=== PATIENT | female | born 1945 | race Caucasian/White ===

== ENCOUNTER 2024-07-06 20:32 | Inpatient (IN) | payer MEDICARE, SELFPAY ==
[2024-07-06 20:33] VITALS: BMI 23.1
--- NOTE | 2024-07-06 20:33 | EKG_ITS ---
[facility] Test Date: 2024-07-06 Pat Name: RAJESH MEHTA Department: Room: - Gender: Female Test Driver: : 1945 Requested By: Eleuterio Ledbetter Order Number: [id number] Reading MD: Eleuterio Ledbetter Measurements Intervals [place] Rate: 67 P: 91 PA: 171 QRS: 57 QRSD: 82 T: 64 QT: 450 QTc: 478 Interpretive Statements SINUS RHYTHM Compared to ECG 08/21/2022 08:58:54 Sinus bradycardia no longer present /store/S0/[id number].pdf
[2024-07-06 20:43] VITALS: BP 120/61; PULSE 70; RESP 18; TEMP 36.5; O2SAT 97
--- NOTE | 2024-07-06 20:57 | XR_ITS ---
Examination: PA chest single view TECHNIQUE: Upright PA chest single view Exam date and time: July 06, [id number] hours Comparison December 03, 2023 INDICATIONS: Chest pain shortness of breath today. FINDINGS: COPD with moderate hyperexpansion Stable parenchymal pleural scarring at the apices. Normal heart size. No interval pneumonia or pulmonary edema Impression: COPD No interval pneumonia or pulmonary edema
[2024-07-06] MEDS: ONDANSETRON ODT 4 MG TABRAP PO (21:00)
--- NOTE | 2024-07-06 21:05 | EDRME_ITS ---
Rapid Medical Screening Exam [facility] Arrival date/time: 07/06/24 20:32 78F with history of HTN, RA, OA, and anxiety presents to ED with some CP, SOB, and N/V after she started taking doxycycline for a MRSA UTI. Patient took 0.25 mg Xanax and started feeling better. Chief Complaint: Chest Pain Time Seen by Provider: 07/06/24 20:56 Vital signs: Vital Signs Temperature 97.7 F 07/06/24 20:43 Pulse Rate 70 07/06/24 20:43 Respiratory Rate 18 07/06/24 20:43 Blood Pressure 120/61 07/06/24 20:43 Pulse Oximetry (%) 97 07/06/24 20:43 Oxygen Delivery Method Room Air 07/06/24 20:43
[2024-07-06 21:21] LABS: Basophils # (Auto) 0.1 Thou/mm3 (0.0-0.2); Basophils % (Auto) 1 % (0-2.5); Eosinophils # (Auto) 0.2 Thou/mm3 (0.0-0.5); Eosinophils % (Auto) 3 % (0-10); Hematocrit 32.1 % (36.0-46.0); Hemoglobin 11.4 g/dL (12.0-16.0); Immature Granulocytes % (Auto) 0 % (0-0); Immature Granulocytes Auto 0.03 Thou/mm3 (0.00-0.00); Lymphocytes # (Auto) 3.2 Thou/mm3 (1.0-4.8); Lymphocytes % (Auto) 40 % (10-50); Mean Corpuscular HGB Conc 35.5 g/dl (31.0-37.0); Mean Corpuscular Hemoglobin 30.9 pg (25.0-35.0); Mean Corpuscular Volume 87 fL (80-100); Monocytes % (Auto) 12 % (0-12); Neutrophils # (Auto) 3.4 Thou/mm3 (1.8-7.7); Neutrophils % (Auto) 43 % (37-80); Nucleated Red Blood Cell % 0 /100 WBC (0); Platelet Count 301 Thou/mm3 (140-440); RDW Standard Deviation 39.8 fL (36.4-46.3); Red Blood Count 3.69 Miln/mm3 (4.00-5.20); White Blood Count 7.9 Thou/mm3 (3.6-11.0)
[2024-07-06 21:44] LABS: Alanine Aminotransferase 13 U/L (10-49); Albumin, Serum 4.5 gm/dL (3.4-4.8); Albumin/Globulin Ratio 1.7 (1.2-2.2); Alkaline Phosphatase 55 U/L (46-116); Anion Gap 10 (7-16); Aspartate Amino Transferase 23 U/L (0-34); BUN/Creatinine Ratio 16 Ratio (12-20); Bilirubin,Total 0.5 mg/dL (0.3-1.2); Blood Urea Nitrogen 14 mg/dL (9-23); Calcium 9.3 mg/dL (8.3-10.6); Calcium (Corrected) 9.3 mg/dL (8.5-10.1); Carbon Dioxide 22.9 mMol/L (20.0-31.0); Chloride 92 mMol/L (98-107); Creatinine (Component) 0.9 mg/dL (0.6-1.3); Estimated Creatinine Clearance 44.5 mL/min (>60); Globulin 2.6 gm/dL (2.3-3.5); Glucose 93 mg/dL (74-106); Osmolality,Calculated 252 (275-295); Potassium 3.5 mMol/L (3.4-5.1); Sodium 125 mMol/L (136-145); Total Protein 7.1 gm/dL (5.7-8.2); eGFR > 60 See Note
[2024-07-06 21:49] LABS: Troponin I 0.068 ng/mL (0.0-0.045)
[2024-07-06 22:27] VITALS: BP 162/79; PULSE 67; RESP 18; TEMP 36.8; O2SAT 98
[2024-07-06 23:45] LABS: Collection Type, Urine Clean Catch
--- NOTE | 2024-07-06 23:46 | PD.EDADULT ---
ED General RME/HPI General Chief complaint: Chest Pain Stated complaint: BP HIGH, HEAVINESS IN CHEST, VOMITING Time Seen by Provider: 07/06/24 20:56 Arrival date/time: 07/06/24 20:32 RME / HPI RME / HPI narrative: This patient is a 78-year-old female with past medical history of hypertension,COPD, GERD, rheumatoid arthritis, lupus on hydroxychloroquine, anxiety takes Xanax, hyperlipidemia presented to the ED with chief complaint of 1 day history of chest tightness started after projectile vomiting and high blood pressure at home. She had 1 episode of vomiting consisting of food particles without any blood. She had some clamminess associated with lightheadedness and feeling of weakness. She reported to have chest tightness lasting 1 hour and went away after she took her Xanax 0.25 mg p.o. x 1. She rated her pain as 7/10 crushing in nature was constant and resolved after an hour. She also reported that her blood pressure was elevated during this episode around 190/100 at home. She does not take her blood pressure every day and is also not compliant with her blood pressure medications. She reports to have mild exertional shortness of breath however she can lay down flat on the bed and denies any lower extremity swelling. Patient has been drinking 32 ounces of water/4 glasses every day. She has been taking doxycycline 100 mg twice daily for MRSA UTI given by her primary care doctor. She took 5 pills of doxycycline and is left with 9 more pills. She vomited her doxycycline today in the evening before coming to the ER. She also complains of indigestion with bloating sensation. Denied any abdominal discomfort. She reported her dysuria has been improving after taking phenazopyridine but still has back pain. Of note, patient reported that she had cough without phlegm over a month ago and took ciprofloxacin for 10 days 2 weeks ago given by her PCP. She also takes butalbital for migraines off and on. In the ED, vitals revealed high blood pressure around 160/79, pulse 67, respiratory 18 and afebrile. Patient was saturating well on room air. Chest x-ray showed no active disease. Labs were significant for hemoglobin 11.4 white count stable at 7.9. Platelet count 301. Coagulation panel pending. Serum sodium 125, potassium 3.5, chloride 92. Kidney function was stable with BUN 40 and creatinine 0.9. GFR 60. Blood glucose 93. Liver enzymes unremarkable. Troponin I was elevated at 0.068. EKG showed sinus rhythm with regular rate and T wave inversion in V1. No acute ST-T changes were seen. No axis deviation was seen. Urinalysis is pending. PMH: As above PSH: Hysterectomy in 2018, bladder surgery, appendectomy SH: Quit smoking 50 years ago used to smoke 1 pack of cigarettes. Denies drinking alcohol or illicit drug use Allergies: Nitrofurantoin, penicillin, sulfa, sulfamethoxazole, Bactrim, butorphanol causes rash Patient was given Zofran x 1, Protonix x 1, KCl 40 mEq x 1, aspirin 325 mg x 1, Xanax 0.25 mg x 1, bolus of 1 L NS and labs were ordered along with urine analysis and urine electrolytes. Urinalysis showed dark yellow urine with pH 6.5, blood 2+ with positive nitrate and leukocyte esterase with WBC 58+. Urine sodium 46.9, urine random potassium 12 and urine random chloride 41.6. Patient would need to be admitted for hypertensive emergency, euvolemic hypoosmolar acute on chronic hyponatremia and hypochloremia likely due to decreased p.o. intake versus SIADH due to possible hydroxychloroquine use, elevated troponin I/NSTEMI?. We are reevaluating with repeating sodium, troponin I. Ordered lactic acid and BNP. Orthostatic vitals were also ordered. will need sodium checks q4h and goal of Na correction around 6 meqs in first 24 hrs. Patient was informed that she will need to be admitted for further workup and evaluation. Hospitalist team notified regarding admission patient will be admitted. MD complaint: chest tighteness, vomitting ,High BP Onset (ago): day(s) Location: chest Radiation: non-radiation Severity: moderate Severity scale (1-10): 7 Quality: dull and constant Consistency: now resolved Relieving factors: medication (xanax) Exacerbating factors: none Associated symptoms: chest pain, diaphoresis, nausea/vomiting and shortness of breath Related Data Home Medications ?Medication ?Instructions ?Recorded ?Confirmed atorvastatin 10 mg tablet 10 mg PO QDAY 02/11/18 07/19/21 famotidine 40 mg tablet 40 mg PO QDAY 02/11/18 07/19/21 alprazolam [Xanax] PO 05/12/19 07/19/21 [id number]-[id number] PO 05/12/19 07/19/21 [Fioricet] aspirin 81 mg tablet,delayed 81 mg PO QDAY 07/19/21 07/19/21 release methenamine mandelate 1 gram tablet 1 g PO BID 07/19/21 07/19/21 Previous Rx's ?Medication ?Instructions ?Recorded azithromycin 250 mg tablet See Rx Instructions PO .COMPLEX #6 05/12/19 (Zithromax) tabs ondansetron 4 mg disintegrating See Rx Instructions .Route 05/12/19 tablet .COMPLEX #20 tabs ciprofloxacin HCl 250 mg tablet 250 mg PO BID #14 tabs 09/05/21 (Cipro) hydrocodone 5 mg-acetaminophen 325 1 tab PO BID PRN pain #6 tabs 01/31/22 mg tablet diphenhydramine HCl 25 mg capsule 25 mg PO Q8H PRN allergic symptoms 02/06/22 (Benadryl) #30 caps hydroxyzine HCl 25 mg tablet 25 mg PO TID PRN itching #30 tabs 02/06/22 tramadol 50 mg tablet 50 mg PO TID PRN pain #20 tabs 01/23/23 Allergies Allergy/AdvReac Type Severity Reaction Status Date / Time nitrofurantoin Allergy Severe RASH Verified 08/21/22 08:45 butorphanol Allergy Unknown Verified 08/21/22 08:45 Penicillins Allergy Unknown Verified 08/21/22 08:45 Sulfa (Sulfonamide Allergy Unknown Verified 08/21/22 08:45 Antibiotics) sulfamethoxazole (From Allergy Hives Verified 08/21/22 08:45 Bactrim) trimethoprim (From Bactrim) Allergy Hives Verified 08/21/22 08:45 Review of Systems Review of Systems Systems Reviewed: All systems reviewed, normal except as documented Past Medical History Past Medical History NEUROLOGIC: Positive Migraine and Head Trauma; Negative Neurological Disorders or Seizures CARDIAC: Positive Cardiac Disorders, Hypercholesterolemia and Hypertension; Negative Congestive Heart Failure RESPIRATORY: Positive Bronchitis; Negative Chronic Obstructive Pulmonary Disease (COPD) GASTROINTESTINAL: Positive Gastrointestinal Disorders and Gastroesophageal Reflux Disease; Negative Hepatitis or Colorectal Cancer GENITOURINARY: Negative Genitourinary Disorders or Renal Disease REPRODUCTIVE: Positive Previous Pregnancies; Negative Breast Cancer MUSCULOSKELETAL: Positive Musculoskeletal Disorders, Arthritis and Fractures ENT: Positive Cataracts and Head Trauma ENDOCRINE: Negative Endocrine Disorders, Diabetes Mellitus Type 1 or Diabetes Mellitus Type 2 HEMATOLOGIC: Negative Blood Disorders PSYCHO/SOCIAL: Positive Anxiety; Negative Depression OTHER HISTORY: Positive Hospitalization, Chicken Pox and Measles; Negative Autoimmune Disease, Falls, Blood Transfusions, Blood Transfusion Reaction, Anesthesia Reactions, Breast Cancer, Cervical Cancer or Colorectal Cancer Family History FAMILY HISTORY: Positive Family Psychiatric Problems, Family Cardiac Disorders, Family Gastrointestinal Problems, Family Cancer and Family Surgery; Negative Family Respiratory Disorders or Family Anesthesia Reaction Surgical History SURGICAL: Positive Oral Surgery, Abdominal Surgery, Arthroscopy, Hysterectomy and Tubal Ligation; Negative Cardiac Surgery, Endocrine Surgery, Tonsillectomy or Section Social History SMOKING STATUS: Never smoker SUBSTANCE USE: does not use ED Exam Narrative Physical exam: GENERAL APPEARANCE: Patient is AO x 3 old appearing female in mild anxiety saturating well on room air. NECK: Supple without lymphadenopathy. MMM. no stiffness or restricted ROM. HEART: Regular rate and regular rhythm, normal S1/S2, 2/4 systolic murmur heard on apex likely aortic stenosis LUNGS: CTAB, moving air well. No crackles or wheezes are heard. ABDOMEN: Soft, nontender, nondistended with good bowel sounds heard. BACK: Bilateral flank tenderness. EXTREMITIES: Without cyanosis, clubbing or edema. NEUROLOGICAL: Grossly nonfocal. Alert and oriented, moving all 4 extremities. CN not formally tested but appear grossly intact. Observed to ambulate with normal gait. Skin: Warm and dry without any rash. Psych: Mildly anxious however appropriate mood and affect Course Course Course Narrative: Patient was given Zofran x 1, Protonix x 1, KCl 40 mEq x 1, aspirin 325 mg x 1, Xanax 0.25 mg x 1, bolus of 1 L NS and labs were ordered along with urine analysis and urine electrolytes. Urinalysis showed dark yellow urine with pH 6.5, blood 2+ with positive nitrate and leukocyte esterase with WBC 58+. Urine sodium 46.9, urine random potassium 12 and urine random chloride 41.6. Patient would need to be admitted for hypertensive emergency, euvolemic hypoosmolar acute on chronic hyponatremia and hypochloremia likely due to decreased p.o. intake versus SIADH due to possible hydroxychloroquine use, elevated troponin I/NSTEMI?. We are reevaluating with repeating sodium, troponin I. Ordered lactic acid and BNP. Orthostatic vitals were also ordered. will need sodium checks q4h and goal of Na correction around 6 meqs in first 24 hrs. Patient was informed that she will need to be admitted for further workup and evaluation. Quality Measures none Orders Category Date Time Status COVID-19 Screening Questionnaire NOW Care 07/07/24 00:17 Completed Decision to Admit X1 Care 07/07/24 00:17 Completed EKG (ED ONLY) *Do not use* NOW Care 07/06/24 20:33 Completed Insert IV NOW Care 07/06/24 23:37 Active Orthostatic Vitals NOW Care 07/06/24 23:29 Active Strict Intake and Output Routine Care 07/06/24 23:36 Ordered EKG (ED Only) Stat Exams 07/06/24 20:33 Draft XR chest 1V portable Stat Exams 07/06/24 20:57 Completed BNP [B-Type Natriuretic Peptide] Stat Lab 07/06/24 21:09 Completed CBC Stat Lab 07/06/24 21:09 Completed CMP [Comprehensive Metabolic Panel] Stat Lab 07/06/24 21:09 Completed Creatinine,Random Urine Stat Lab 07/06/24 23:34 Completed Electrolytes, Urine Random Stat Lab 07/06/24 23:34 Completed INR [Prothrombin Time with INR] Stat Lab 07/06/24 21:09 Completed Lactate (Lactic Acid) Stat Lab 07/06/24 23:50 Completed Mag [Magnesium] Stat Lab 07/06/24 23:00 Completed Osmolality, Urine* Stat Lab 07/06/24 23:34 Received PTT [Partial Thromboplastin Time] Stat Lab 07/06/24 21:09 Completed Phosphorous Stat Lab 07/06/24 23:00 Completed Procalcitonin Stat Lab 07/06/24 23:00 Completed Sodium Stat Lab 07/06/24 23:00 Completed Troponin I Stat Lab 07/06/24 21:09 Completed Troponin I Stat Lab 07/06/24 23:00 Completed Urinalysis Stat Lab 07/06/24 23:34 Completed ALPRazoLAM [Xanax] Med 07/06/24 23:36 Discontinued 0.25 mg PO X1 ONE Aspirin Med 07/06/24 23:29 Discontinued 325 mg PO X1 ONE Doxycycline [Vibramycin] Med 07/08/24 09:00 Active 100 mg PO BID Doxycycline [Vibramycin] Med 07/06/24 23:45 Discontinued 100 mg PO X1 ONE KCL 10% Liq UDC 15 ML Med 07/06/24 23:29 Discontinued 40 meq GT X1 ONE Nitroglycerin Oint 2% [Nitro-paste Oint 2%] Med 07/07/24 00:16 Discontinued 1 inch TOP X1 ONE Ondansetron Odt [Zofran Odt] Med 07/06/24 20:57 Discontinued 4 mg PO X1 ONE Pantoprazole Inj [Protonix Inj] Med 07/06/24 23:29 Discontinued 40 mg IVP X1 ONE Phenazopyridine HCl [Pyridium] Med 07/07/24 08:00 Active 100 mg PO TIDWM Sodium Chloride 0.9% 1000 ml [Ns] 1,000 ml Med 07/06/24 23:39 Discontinued IV 999 mls/hr Sodium Chloride 0.9% 500 ml [Ns] 500 ml Med 07/06/24 23:30 Discontinued IV 999 mls/hr hydrALAZINE INJ [Apresoline Inj] Med 07/06/24 23:34 Active 10 mg IV Q6H PRN Vital Signs Vital signs: Vital Signs Temperature 97.7 F 07/06/24 20:43 Pulse Rate 70 07/06/24 20:43 Respiratory Rate 18 07/06/24 20:43 Blood Pressure 120/61 07/06/24 20:43 Pulse Oximetry (%) 97 07/06/24 20:43 Oxygen Delivery Method Room Air 07/06/24 20:43 Discharge Plan Plan Patient Disposition: Admit Acute Care w/in Hospital Problem List Clinical Impression: Hypertensive emergency, Elevated troponin I level, Acute hyponatremia MDM Narrative Sign Out note: Patient was given Zofran x 1, Protonix x 1, KCl 40 mEq x 1, aspirin 325 mg x 1, Xanax 0.25 mg x 1, bolus of 1 L NS and labs were ordered along with urine analysis and urine electrolytes. Urinalysis showed dark yellow urine with pH 6.5, blood 2+ with positive nitrate and leukocyte esterase with WBC 58+. Urine sodium 46.9, urine random potassium 12 and urine random chloride 41.6. Patient would need to be admitted for hypertensive emergency, euvolemic hypoosmolar acute on chronic hyponatremia and hypochloremia likely due to decreased p.o. intake versus SIADH due to possible hydroxychloroquine use, elevated troponin I/NSTEMI?. We are reevaluating with repeating sodium, troponin I. Ordered lactic acid and BNP. Orthostatic vitals were also ordered. will need sodium checks q4h and goal of Na correction around 6 meqs in first 24 hrs. Patient was informed that she will need to be admitted for further workup and evaluation. Medication Administration(s) Medication Administration History Acetaminophen (Acetaminophen 325 Mg Tablet) 650 mg PO Q4HR PRN PRN Reason: FEVER >101 Stop: 08/06/24 01:46 Alprazolam (Alprazolam 0.25 Mg Tablet) 0.25 mg PO Q12HR PRN PRN Reason: Anxiety Stop: 07/12/24 01:51 Amlodipine Besylate (Amlodipine Besylate 5 Mg Tablet) 5 mg PO QDAY RAMSEY Stop: 08/06/24 08:59 Aspirin (Aspirin Ec 81 Mg Tabec) 81 mg PO DAILY RAMSEY Stop: 08/06/24 08:59 Atorvastatin Calcium (Atorvastatin Calcium 20 Mg Tablet) 40 mg PO HS RAMSEY Stop: 08/06/24 20:59 Doxycycline Hyclate (Doxycycline 100 Mg Tablet) 100 mg PO BID RAMSEY Stop: 07/17/24 08:59 Enoxaparin Sodium (Enoxaparin Sod Inj 40 Mg/0.4 Ml Syringe) 40 mg SC DAILY RAMSEY Stop: 07/21/24 08:59 Famotidine (Famotidine Inj 10 Mg/Ml Vial 2 Ml) 20 mg IVP BID RAMSEY Stop: 08/06/24 08:59 Hydralazine HCl (Hydralazine Inj 20 Mg/Ml Vial) 10 mg IV Q6H PRN PRN Reason: HTN emergency Stop: 08/05/24 23:44 Hydroxychloroquine Sulfate (Hydroxychloroquine 200 Mg Tablet) 200 mg PO QDAY RAMSEY Stop: 07/14/24 08:59 Magnesium Sulfate (Magnesium Sulfate Ivpb) 2 gm in 50 mls @ 25 mls/hr IV X1 ONE Stop: 07/07/24 03:06 Last Admin: 07/07/24 01:52 Dose: 25 mls/hr Documented By: SUKHWINDER Ondansetron HCl (Ondansetron Inj 2 Mg/Ml Inj 2 Ml) 4 mg IV Q8HR PRN; Protocol PRN Reason: NAUSEA OR VOMITING Stop: 08/06/24 01:46 Phenazopyridine HCl (Phenazopyridine Hcl 100 Mg Tablet) 100 mg PO TIDWM RAMSEY Stop: 07/08/24 17:31 Discontinued Medications Alprazolam (Alprazolam 0.25 Mg Tablet) 0.25 mg PO X1 ONE Stop: 07/06/24 23:37 Last Admin: 07/06/24 23:59 Dose: 0.25 mg Documented By: SUKHWINDER Aspirin (Aspirin 325 Mg Tablet) 325 mg PO X1 ONE Stop: 07/06/24 23:30 Last Admin: 07/06/24 23:58 Dose: 325 mg Documented By: SUKHWINDER Clopidogrel Bisulfate (Clopidogrel Bisulfate 75 Mg Tablet) 75 mg PO X1 ONE Stop: 07/07/24 01:14 Last Admin: 07/07/24 01:52 Dose: 75 mg Documented By: SUKHWINDER Doxycycline Hyclate (Doxycycline 100 Mg Tablet) 100 mg PO X1 ONE Stop: 07/06/24 23:46 Last Admin: 07/06/24 23:59 Dose: 100 mg Documented By: SUKHWINDER Sodium Chloride (Ns) 500 mls @ 999 mls/hr IV .Q31M ONE Stop: 07/07/24 00:00 Last Admin: 07/06/24 23:50 Dose: Not Given Documented By: SUKHWINDER Non-Admin Reason: Cancelled by Provider Sodium Chloride (Ns) 1,000 mls @ 999 mls/hr IV .Q1H1M ONE Stop: 07/07/24 00:39 Last Infusion: 07/07/24 01:36 Dose: Infused Documented By: Admin: 07/07/24 00:00 Dose: 999 mls/hr Documented By: SUKHWINDER Nitroglycerin (Nitroglycerin Oint 2% 1 Inch Packet) 1 inch TOP X1 ONE Stop: 07/07/24 00:17 Last Admin: 07/07/24 00:46 Dose: 1 inch Documented By: SUKHWINDER Ondansetron HCl (Ondansetron Odt 4 Mg Tabrap) 4 mg PO X1 ONE; Protocol Stop: 07/06/24 20:58 Last Admin: 07/06/24 21:00 Dose: 4 mg Documented By: PAULA Pantoprazole Sodium (Pantoprazole Inj 40 Mg Vial) 40 mg IVP X1 ONE Stop: 07/06/24 23:30 Last Admin: 07/06/24 23:59 Dose: 40 mg Documented By: SUKHWINDER Potassium Chloride (Potassium Chloride 10% 20 Meq/15 Ml Udc) 40 meq GT X1 ONE Stop: 07/06/24 23:30 Last Admin: 07/06/24 23:58 Dose: 40 meq Documented By: SUKHWINDER
[2024-07-06 23:57] LABS: Lactate (Lactic Acid) 1.6 mMol/L (0.4-2.0)
[2024-07-06] MEDS: POTASSIUM CHLORIDE 10% 20 MEQ/15 ML UDC 40 MEQ GT (23:58)
[2024-07-06] MEDS: Aspirin 325 MG TABLET PO (23:58)
[2024-07-06] MEDS: DOXYCYCLINE 100 MG TABLET PO (23:59)
[2024-07-06] MEDS: ALPRazoLAM 0.25 MG TABLET PO (23:59)
[2024-07-06] MEDS: PANTOPRAZOLE INJ 40 MG VIAL IVP (23:59)
[2024-07-07] VITALS (22 sets, daily range): BP systolic 113–189; BP diastolic 68–98; PULSE 72–99; RESP 13–22; TEMP 36.2–37.2; O2SAT 93–100; BMI 22.4
[2024-07-07] LABS: Bacteria,Urine Rare; Bilirubin,Urine Negative (Negative); Blood,Urine 2+ (Negative); Clarity,Urine Clear (Clear/Hazy); Color,Urine Drk-Yellow (Lt Yel-Yel); Glucose, Urine Negative (Negative); Ketones,Urine Negative (Negative); Leukocyte Esterase,Urine Positive (Negative); Nitrite,Urine Positive (Negative); PH,Urine 6.5 (5.0-7.0); Protein,Urine Negative (Neg - Trace); RBC,Urine 2 /hpf (0-3); Specific Gravity,Urine 1.007 (1.001-1.035); Squamous Epithelial Cell,Urine < 1 /hpf (0-5); Urobilinogen,Urine Negative mg/dL (0.0-1.0); WBC,Urine 58 /hpf (0-5)
[2024-07-07] MEDS: SODIUM CHLORIDE 0.9% 1000 ML 1,000 ML 999 ML IV
[2024-07-07 00:04] LABS: Chloride,Urine Random 41.6 mMol/L (55.0-125.0); Creatinine,Random Urine 24 mg/dL (30-125); Potassium,Urine Random 12 mMol/L (12-62); Sodium,Urine Random 46.9 mMol/L (20.0-110.0)
[2024-07-07 00:12] LABS: Partial Thromboplastin Time 27.1 Seconds (22.0-36.0); Prothrombin Time 11.1 Seconds (9.0-12.2)
[2024-07-07 00:15] LABS: B-Type Natriuretic Peptide 99 pg/mL (0-100)
[2024-07-07] MEDS: NITROGLYCERIN OINT 2% 1 INCH PACKET TOP (00:46)
[2024-07-07 00:50] LABS: Magnesium 1.8 mg/dL (1.6-2.6); Phosphorous 3.1 mg/dL (2.4-5.1); Sodium 129 mMol/L (136-145)
--- NOTE | 2024-07-07 00:52 | PD.RESHP ---
Documentation for date of: 07/07/24 HPI History of Present Illness History of present illness: The patient is a 78-year-old female with a past medical history of systemic lupus erythematosus, chronic bronchitis, GERD, rheumatoid arthritis, anxiety, hyperlipidemia migraines, who presented to the ER complaining of 4 episodes of vomiting associated with chest tightness and shortness of breath. Patient states she was recently started on antibiotics doxycycline p.o. for MRSA UTI earlier this week, and has been having upset stomach since then. Denies any diaphoresis, cough or fever. Patient stated she is independent with all ADLs, has a with dementia, and also had an old friend recently. Which has been stressing her out emotionally. She has had similar episodes of chest discomfort in the past which terminated spontaneously. Denied orthopnea or exertional dyspnea . patient stated she was last seen by tubular products fabricator [address] Hanna Floyd's office, and all the testing at that time was normal. Currently she follows a rehabilitation psychologist and takes hydroxychloroquine which keeps SLE fairly well-controlled. Patient reported that since coming to the ER her chest discomfort has now completely resolved. In the ER, patient was noted to have troponin elevation, was given aspirin loading dose, clopidogrel, troponins 0.068, increased to 0.441, does not complain of current chest pain reports improvement in symptoms. She was given nitro patch, Zofran and alprazolam. IV fluid bolus was given x 1, the patient was admitted to medical floor for further observation and treatment. EKG sinus rhythm, no acute ST-T changes. Chest x-ray finding consistent with hyperexpansion of lungs consistent with COPD. Past medical history: As noted above. SLE on HCQ, GERD, RA, anxiety, hyperlipidemia, migraines, chronic bronchitis?patient denied a history of COPD, but does say she has been told after chest imaging that she has COPD. Does not take any inhalers or oxygen at home. Social history: Remote history of smoking patient quit when she was 22 years old, denies current smoking or drinking. Review of Systems Review of Systems Systems Reviewed: All systems reviewed, normal except as documented Past Medical History Past Medical History NEUROLOGIC: Positive Migraine and Head Trauma; Negative Neurological Disorders or Seizures CARDIAC: Positive Cardiac Disorders, Hypercholesterolemia and Hypertension; Negative Congestive Heart Failure RESPIRATORY: Positive Bronchitis; Negative Chronic Obstructive Pulmonary Disease (COPD) or Asthma GASTROINTESTINAL: Positive Gastrointestinal Disorders and Gastroesophageal Reflux Disease; Negative Hepatitis or Colorectal Cancer GENITOURINARY: Negative Genitourinary Disorders or Renal Disease REPRODUCTIVE: Positive Previous Pregnancies; Negative Breast Cancer MUSCULOSKELETAL: Positive Musculoskeletal Disorders, Arthritis and Fractures ENT: Positive Cataracts and Head Trauma ENDOCRINE: Negative Endocrine Disorders, Diabetes Mellitus Type 1 or Diabetes Mellitus Type 2 HEMATOLOGIC: Negative Blood Disorders or Sickle Cell Disease PSYCHO/SOCIAL: Positive Anxiety; Negative Depression OTHER HISTORY: Positive Hospitalization, Chicken Pox and Measles; Negative Autoimmune Disease, Falls, Blood Transfusions, Blood Transfusion Reaction, Anesthesia Reactions, Breast Cancer, Cervical Cancer or Colorectal Cancer Family History FAMILY HISTORY: Positive Family Psychiatric Problems, Family Cardiac Disorders, Family Gastrointestinal Problems, Family Cancer and Family Surgery; Negative Family Respiratory Disorders or Family Anesthesia Reaction Surgical History SURGICAL: Positive Oral Surgery, Abdominal Surgery, Arthroscopy, Hysterectomy and Tubal Ligation; Negative Cardiac Surgery, Endocrine Surgery, Tonsillectomy or Section Social History SMOKING STATUS: Never smoker SUBSTANCE USE: does not use Exam Vital Signs Temp Pulse Resp BP Pulse Ox O2 Del Method 98.6 F 80 16 159/70 H 98 Room Air 07/07/24 00:44 07/07/24 00:46 07/07/24 00:44 07/07/24 00:46 07/07/24 00:44 07/07/24 00:44 Narrative Exam General: AOx3, cooperative, in no acute distress saturating well on room air. Skin: Intact, no cyanosis or edema noted. HEENT: Atraumatic/normocephalic, SARIAH, neck supple. Heart: RRR, S1 and S2 without clicks or murmurs. Lungs: Clear on auscultation bilaterally, no difficulty breathing. Abdomen: Soft, nontender. Bowel sounds present . Vascular: Peripheral pulses palpable. Neuro: No focal neurological deficits noted. Results: Labs 07/07/24 02:10 07/07/24 02:10 Labs: Short CBC 07/06/24 Range/Units 21:09 WBC 7.9 (3.6-11.0) Thou/mm3 Hgb 11.4 L (12.0-16.0) g/dL Hct 32.1 L (36.0-46.0) % Plt Count 301 (140-440) Thou/mm3 BMP 07/06/24 21:09 Sodium 125 L Potassium 3.5 Chloride 92 L Carbon Dioxide 22.9 BUN 14 Creatinine 0.9 Glucose 93 Calcium 9.3 Cardiac Enzymes 07/06/24 Range/Units 21:09 Troponin I 0.068 H* (0.0-0.045) ng/mL Liver Function 07/06/24 Range/Units 21:09 Total Bilirubin 0.5 (0.3-1.2) mg/dL AST 23 (0-34) U/L ALT 13 (10-49) U/L Alkaline Phosphatase 55 (46-116) U/L Albumin 4.5 (3.4-4.8) gm/dL Urine 07/06/24 Range/Units 23:34 Urine Color Drk-Yellow A (Lt Yel-Yel) Urine Clarity Clear (Clear/Hazy) Urine pH 6.5 (5.0-7.0) Ur Specific [place] 1.007 (1.001-1.035) Urine Protein Negative (Neg - Trace) Urine Glucose (UA) Negative (Negative) Quality Measures Quality Measures none Advance care planning discussed with:: patient Medications Home Medications and Allergies Home Medications ?Medication ?Instructions ?Recorded ?Confirmed ?Type atorvastatin 10 mg tablet 10 mg PO QDAY 02/11/18 07/19/21 History famotidine 40 mg tablet 40 mg PO QDAY 02/11/18 07/19/21 History alprazolam [Xanax] PO 05/12/19 07/19/21 History kjpcqhgnze-fdhzxwmaqkely-knsp PO 05/12/19 07/19/21 History [Fioricet] aspirin 81 mg tablet,delayed 81 mg PO QDAY 07/19/21 07/19/21 History release methenamine mandelate 1 gram tablet 1 g PO BID 07/19/21 07/19/21 History Allergies Allergy/AdvReac Type Severity Reaction Status Date / Time nitrofurantoin Allergy Severe RASH Verified 08/21/22 08:45 butorphanol Allergy Unknown Verified 08/21/22 08:45 Penicillins Allergy Unknown Verified 08/21/22 08:45 Sulfa (Sulfonamide Allergy Unknown Verified 08/21/22 08:45 Antibiotics) sulfamethoxazole (From Allergy Hives Verified 08/21/22 08:45 Bactrim) trimethoprim (From Bactrim) Allergy Hives Verified 08/21/22 08:45 Visit Medications Doxycycline Hyclate (Doxycycline 100 Mg Tablet) 100 mg PO BID RAMSEY Stop: 05/17/25 08:59 Hydralazine HCl (Hydralazine Inj 20 Mg/Ml Vial) 10 mg IV Q6H PRN PRN Reason: HTN emergency Stop: 08/05/24 23:44 Phenazopyridine HCl (Phenazopyridine Hcl 100 Mg Tablet) 100 mg PO TIDWM [facility] Stop: 07/08/24 17:31 Discontinued Medications Alprazolam (Alprazolam 0.25 Mg Tablet) 0.25 mg PO X1 ONE Stop: 07/06/24 23:37 Last Admin: 07/06/24 23:59 Dose: 0.25 mg Aspirin (Aspirin 325 Mg Tablet) 325 mg PO X1 ONE Stop: 07/06/24 23:30 Last Admin: 07/06/24 23:58 Dose: 325 mg Doxycycline Hyclate (Doxycycline 100 Mg Tablet) 100 mg PO X1 ONE Stop: 07/06/24 23:46 Last Admin: 07/06/24 23:59 Dose: 100 mg Sodium Chloride (Ns) 500 mls @ 999 mls/hr IV .Q31M ONE Stop: 07/07/24 00:00 Last Admin: 07/06/24 23:50 Dose: Not Given Sodium Chloride (Ns) 1,000 mls @ 999 mls/hr IV .Q1H1M ONE Stop: 07/07/24 00:39 Last Admin: 07/07/24 00:00 Dose: 999 mls/hr Nitroglycerin (Nitroglycerin Oint 2% 1 Inch Packet) 1 inch TOP X1 ONE Stop: 07/07/24 00:17 Last Admin: 07/07/24 00:46 Dose: 1 inch Ondansetron HCl (Ondansetron Odt 4 Mg Tabrap) 4 mg PO X1 ONE; Protocol Stop: 07/06/24 20:58 Last Admin: 07/06/24 21:00 Dose: 4 mg Pantoprazole Sodium (Pantoprazole Inj 40 Mg Vial) 40 mg IVP X1 ONE Stop: 07/06/24 23:30 Last Admin: 07/06/24 23:59 Dose: 40 mg Potassium Chloride (Potassium Chloride 10% 20 Meq/15 Ml Udc) 40 meq GT X1 ONE Stop: 07/06/24 23:30 Last Admin: 07/06/24 23:58 Dose: 40 meq Assessment & Plan Plan The patient is a 78-year-old female with a past medical history of systemic lupus erythematosus, chronic bronchitis, GERD, rheumatoid arthritis, anxiety, hyperlipidemia migraines, who presented to the ER complaining of 4 episodes of vomiting associated with chest tightness and shortness of breath. Patient states she was recently started on antibiotics doxycycline p.o. for MRSA UTI earlier this week, and has been having upset stomach since then. Denies any diaphoresis, cough or fever. Patient stated she is independent with all ADLs, has a with dementia, and also had an old friend recently. Which has been stressing her out emotionally. She has had similar episodes of chest discomfort in the past which terminated spontaneously. Denied orthopnea or exertional dyspnea . patient stated she was last seen by tubular products fabricator [address] Hanna Floyd's office, and all the testing at that time was normal. Currently she follows a rehabilitation psychologist and takes hydroxychloroquine which keeps SLE fairly well-controlled. Patient reported that since coming to the ER her chest discomfort has now completely resolved. In the ER, patient was noted to have troponin elevation, was given aspirin loading dose, clopidogrel, troponins 0.068, increased to 0.441, does not complain of current chest pain reports improvement in symptoms. She was given nitro patch, Zofran and alprazolam. IV fluid bolus was given x 1, the patient was admitted to medical floor for further observation and treatment. EKG sinus rhythm, no acute ST-T changes. Chest x-ray finding consistent with hyperexpansion of lungs consistent with COPD. #Chest discomfort?now resolved #Troponinemia?likely supply/demand ischemia type II vs type 1 NSTEMI In the ER, patient was noted to have troponin elevation, was given aspirin loading dose, clopidogrel, troponins 0.068, increased to 0.441, does not complain of current chest pain reports improvement in symptoms. She was given nitro patch, Zofran and alprazolam. IV fluid bolus was given x 1, the patient was admitted to medical floor for further observation and treatment. EKG sinus rhythm, no acute ST-T changes. ? Aspirin 81 mg daily, atorvastatin ? Nitropatch ? Heparin drip as biphasic T waves in anterior chest leads are concerning. ? Cardiology consult placed, appreciate recs. ? Trend troponins #Hypertensive urgency ? IV hydralazine as needed for SBP more than 180 #Hyponatremia Hypoosmolar hyponatremia, serum sodium 125, uptrending to serum sodium 129, ordered urine electrolytes, currently patient is at baseline mental status. Patient is euvolemic. ?Continue to monitor daily electrolytes #Nausea/vomiting ?IV Zofran as needed #UTI Patient reported she had a history of MRSA UTI, was prescribed doxycycline by her primary care provider. ? P.o. doxycycline 100 mg twice daily #History of SLE ?Continue hydroxychloroquine #History of chronic bronchitis/COPD Patient denies any respiratory distress, does not take inhalers at home, does not require home oxygen. Currently saturating on room air ? DuoNebs as needed Disposition: Admit DVT prophylaxis: Lovenox GI prophylaxis: Diet: cardiac Lines: PIV CODE STATUS: Full The plan of care was discussed with my attending physician Dr. Dread Saunders MD PGY2 This document was completed utilizing speech recognition software. Grammatical errors, random word insertions, pronoun errors, and incomplete sentences are an occasional consequence of this system due to software limitations, ambient noise, and hardware issues. Any formal questions or concerns about the content, text or information contained within the body of this dictation should be directly addressed to the provider for clarification. Attending Provider Attestation/Addendum Pt was evaluated and plan formulated together with the housestaff team. I have reviewed the residents note above and agree with most of its content. Please refer to the residents note for additional details. A 78-year-old female presented to the ER with the chief complaint of chest tightness following an episode of projectile vomiting. The patient described one day of chest tightness that began shortly after she experienced projectile vomiting in the evening. She reported the vomiting started after taking her fifth dose of doxycycline for a MRSA UTI. The episode was intense and prolonged, with difficulty catching her breath between episodes. She also noted an elevated home blood pressure reading of 190/92 mmHg at that time. The chest tightness was described as crushing, rated 7/10, lasted about one hour, and resolved after she took 0.25 mg of Xanax. She also c/o lightheadedness, clamminess, weakness, exertional shortness of breath, bloating, indigestion, chronic dry cough (over a month, treated with ciprofloxacin 2 weeks ago), and intermittent dysuria with incomplete bladder emptying. Patient denied abdominal discomfort, orthopnea, or lower extremity swelling. She reported improvement in urinary symptoms with phenazopyridine. She came to the ER due to persistent vomiting, elevated blood pressure, and concern for chest symptoms. The patient has a history of HTN, COPD, GERD, RA, lupus, hyperlipidemia, migraines, and anxiety. Surgical history includes hysterectomy and bladder lift in 2018, and appendectomy. Current medications include Olmesartan, Hydroxychloroquine, Famotidine, Xanax, Butalbital, Doxycycline, and a cholesterol medication. Social history includes remote smoking, no alcohol or illicit drug use. She lives with her , who has Alzheimer?s, and she is his primary caregiver. She is ambulatory and functional. In the ER, vital signs recorded as temp 97.7 ?F, HR 70 bpm, RR 18, BP 120/61 mmHg. Labs revealed: hemoglobin 11.4, WBC 7.9, platelets 301, sodium 125, potassium 3.5, chloride 92, BUN 40, creatinine 0.9, glucose 93. Troponin trended up from 0.038 to 0.441 to 0.738. EKG showed sinus rhythm with T wave inversion in V1, no ST-T changes or axis deviation. Chest X-ray showed no active disease. Heparin drip started. Admit for further evaluation and treatment.
[2024-07-07 00:54] LABS: Troponin I 0.441 ng/mL (0.0-0.045)
[2024-07-07 01:11] LABS: Procalcitonin 0.05 ng/ml (0.0-0.49)
--- NOTE | 2024-07-07 01:13 | EKG_ITS ---
[facility] Test Date: 2024-07-07 Pat Name: RAJESH MEHTA Department: Room: - Gender: Female Flume Tender: : 1945 Requested By: Alvin Anderson Order Number: [id number] Reading MD: Alvin Anderson Measurements Intervals [place] Rate: 75 P: 70 MI: 176 QRS: 53 QRSD: 79 T: 87 QT: 419 QTc: 470 Interpretive Statements SINUS RHYTHM NONSPECIFIC T-WAVE ABNORMALITY Compared to ECG 07/06/2024 20:45:57 T-wave abnormality now present /store/S0/[id number].pdf
[2024-07-07] MEDS: Magnesium Sulfate 2 GM Ivpb 2 GM/50 ML BAG IV (01:52)
[2024-07-07] MEDS: CLOPIDOGREL BISULFATE 75 MG TABLET PO (01:52)
[2024-07-07 02:22] LABS: Basophils # (Auto) 0.1 Thou/mm3 (0.0-0.2); Basophils % (Auto) 1 % (0-2.5); Eosinophils # (Auto) 0.1 Thou/mm3 (0.0-0.5); Eosinophils % (Auto) 1 % (0-10); Hematocrit 29.9 % (36.0-46.0); Hemoglobin 10.5 g/dL (12.0-16.0); Immature Granulocytes % (Auto) 0 % (0-0); Immature Granulocytes Auto 0.02 Thou/mm3 (0.00-0.00); Lymphocytes # (Auto) 2.4 Thou/mm3 (1.0-4.8); Lymphocytes % (Auto) 28 % (10-50); Mean Corpuscular HGB Conc 35.1 g/dl (31.0-37.0); Mean Corpuscular Hemoglobin 31.1 pg (25.0-35.0); Mean Corpuscular Volume 89 fL (80-100); Monocytes # (Auto) 0.9 Thou/mm3 (0.0-0.8); Monocytes % (Auto) 11 % (0-12); Neutrophils # (Auto) 4.9 Thou/mm3 (1.8-7.7); Neutrophils % (Auto) 58 % (37-80); Nucleated Red Blood Cell % 0 /100 WBC (0); Platelet Count 272 Thou/mm3 (140-440); RDW Standard Deviation 39.8 fL (36.4-46.3); Red Blood Count 3.38 Miln/mm3 (4.00-5.20); White Blood Count 8.3 Thou/mm3 (3.6-11.0)
[2024-07-07 03:05] LABS: Alanine Aminotransferase 11 U/L (10-49); Albumin, Serum 3.9 gm/dL (3.4-4.8); Albumin/Globulin Ratio 1.7 (1.2-2.2); Alkaline Phosphatase 51 U/L (46-116); Anion Gap 7 (7-16); Aspartate Amino Transferase 19 U/L (0-34); BUN/Creatinine Ratio 12 Ratio (12-20); Bilirubin,Total 0.5 mg/dL (0.3-1.2); Blood Urea Nitrogen 12 mg/dL (9-23); Calcium 8.4 mg/dL (8.3-10.6); Calcium (Corrected) 8.5 mg/dL (8.5-10.1); Chloride 102 mMol/L (98-107); Globulin 2.3 gm/dL (2.3-3.5); Glucose 102 mg/dL (74-106); Osmolality,Calculated 267 (275-295); Potassium 4.9 mMol/L (3.4-5.1); Sodium 134 mMol/L (136-145); Total Protein 6.2 gm/dL (5.7-8.2); eGFR 58 See Note
[2024-07-07 03:12] LABS: Troponin I 0.738 ng/mL (0.0-0.045)
[2024-07-07 03:47] LABS: Partial Thromboplastin Time 28.1 Seconds (22.0-36.0)
[2024-07-07] MEDS: Heparin/D5w 25K 250 ML Ivpb 25,000 UNIT/250 ML BAG 7.091 UNIT IV (04:29)
[2024-07-07] MEDS: HEPARIN SOD INJ 5000 UNIT/ML VIAL 3550 UNIT IV (04:29)
[2024-07-07] MEDS: ACETAMINOPHEN 325 MG TABLET 650 MG PO (07:27)
[2024-07-07] MEDS: PHENAZOPYRIDINE HCL 100 MG TABLET PO (07:28)
[2024-07-07] MEDS: ONDANSETRON INJ 2 MG/ML INJ 2 ML 4 MG IV ×2 (08:48→20:54)
[2024-07-07] MEDS: FAMOTIDINE INJ 10 MG/ML VIAL 2 ML 20 MG IVP (08:51)
[2024-07-07] MEDS: HYDROXYCHLOROQUINE 200 MG TABLET PO (08:55)
[2024-07-07] MEDS: ASPIRIN EC 81 MG TABEC PO (08:56)
[2024-07-07] MEDS: amLODIPine BESYLATE 5 MG TABLET PO (08:56)
[2024-07-07] MEDS: DOXYCYCLINE 100 MG TABLET PO ×2 (08:57→20:53)
[2024-07-07] MEDS: ACETAMIN/CAFF/BUTAL (Fioricet) 1 TAB PO ×3 (08:57→20:54)
--- NOTE | 2024-07-07 09:43 | ESPR_ITS ---
Documentation for date of: 07/07/24 Subjective Subjective Interval history: Overnight admission. Seen and examined at bedside and patient does not endorse chest discomfort, shortness of breath, nausea, vomiting. However, after evaluation notified by nursing staff that patient was dry heaving and ordered scopolamine patch. Otherwise, states she'd had this chest discomfort intermittently for the last few weeks and that when it does occur, it can occur with activity and at rest, lasts 5-10 minutes, can radiate to her jaw, and recently has experienced associated nausea and vomiting. Will continue with heparin drip and troponins noted to peak at 0.74 and pending dairy laboratory technician. Exam Vital Signs Temp Pulse Resp BP Pulse Ox O2 Del Method 98.0 F 76 18 123/68 99 Room Air 07/07/24 04:00 07/07/24 08:56 07/07/24 04:00 07/07/24 08:56 07/07/24 04:00 07/07/24 04:00 Narrative Exam General: AOx3, no acute distress, able to speak full sentences HEENT: NC/AT, mucous membranes moist, bilateral sclera anicteric Cardiovascular: regular rate and rhythm, S1/S2 present, no murmurs appreciated Pulmonary: clear to auscultation bilaterally, no rales/rhonchi/wheezes Abdominal: soft, non-tender, non-distended, no rebound/guarding, normal bowel sounds present Musculoskeletal: normal ROM, no peripheral edema Skin: warm and dry, intact, no rashes Neuro: CN II-XII intact, no focal deficits Objective Labs 07/07/24 02:10 07/07/24 02:10 Labs: Laboratory Results - last 24 hr 07/06/24 07/06/24 07/06/24 21:09 23:00 23:34 WBC 7.9 RBC 3.69 L Hgb 11.4 L Hct 32.1 L MCV 87 MCH 30.9 MCHC 35.5 RDW Std Deviation 39.8 Plt Count 301 Neut % (Auto) 43 Lymph % (Auto) 40 [place] % (Auto) 12 Eos % (Auto) 3 Baso % (Auto) 1 Neut # (Auto) 3.4 Lymph # (Auto) 3.2 [place] # (Auto) 1.0 H Eos # (Auto) 0.2 Baso # (Auto) 0.1 Immature Gran # (Auto) 0.03 H Absolute Nucleated RBC 0.00 Immature Gran % 0 Nucleated RBC % 0 PT 11.1 INR 1.0 APTT 27.1 Sodium 125 L 129 L Potassium 3.5 Chloride 92 L Carbon Dioxide 22.9 Anion Gap 10 BUN 14 Creatinine 0.9 Estim Creat Clear Calc 44.5 L eGFR > 60 BUN/Creatinine Ratio 16 Glucose 93 Calculated Osmolality 252 L Lactic Acid Calcium 9.3 Corrected Calcium 9.3 Phosphorus 3.1 Magnesium 1.8 Total Bilirubin 0.5 AST 23 ALT 13 Alkaline Phosphatase 55 Troponin I 0.068 H* 0.441 H* D B-Natriuretic Peptide 99 Total Protein 7.1 Albumin 4.5 Globulin 2.6 Albumin/Globulin Ratio 1.7 Procalcitonin 0.05 Ur Collection Type Clean Catch Urine Color Drk-Yellow A Urine Clarity Clear Urine pH 6.5 Ur Specific [place] 1.007 Urine Protein Negative Urine Glucose (UA) Negative Urine Ketones Negative Urine Blood 2+ A Urine Nitrite Positive Urine Bilirubin Negative Urine Urobilinogen (Auto) Negative Ur Leukocyte Esterase Positive Urine RBC 2 Urine WBC 58 H Ur Squamous Epith Cells < 1 Urine Bacteria Rare Ur Random Creatinine 24 L Ur Random Sodium 46.9 Ur Random Potassium 12 Ur Random Chloride 41.6 L 07/06/24 07/07/24 23:50 02:10 WBC 8.3 RBC 3.38 L Hgb 10.5 L Hct 29.9 L MCV 89 MCH 31.1 MCHC 35.1 RDW Std Deviation 39.8 Plt Count 272 Neut % (Auto) 58 Lymph % (Auto) 28 [place] % (Auto) 11 Eos % (Auto) 1 Baso % (Auto) 1 Neut # (Auto) 4.9 Lymph # (Auto) 2.4 [place] # (Auto) 0.9 H Eos # (Auto) 0.1 Baso # (Auto) 0.1 Immature Gran # (Auto) 0.02 H Absolute Nucleated RBC 0.00 Immature Gran % 0 Nucleated RBC % 0 PT INR APTT 28.1 Sodium 134 L Potassium 4.9 D Chloride 102 Carbon Dioxide 25.0 Anion Gap 7 BUN 12 Creatinine 1.0 Estim Creat Clear Calc 40.0 L eGFR 58 L BUN/Creatinine Ratio 12 Glucose 102 Calculated Osmolality 267 L Lactic Acid 1.6 Calcium 8.4 Corrected Calcium 8.5 Phosphorus Magnesium Total Bilirubin 0.5 AST 19 ALT 11 Alkaline Phosphatase 51 Troponin I 0.738 H* D B-Natriuretic Peptide Total Protein 6.2 Albumin 3.9 D Globulin 2.3 Albumin/Globulin Ratio 1.7 Procalcitonin Ur Collection Type Urine Color Urine Clarity Urine pH Ur Specific [place] Urine Protein Urine Glucose (UA) Urine Ketones Urine Blood Urine Nitrite Urine Bilirubin Urine Urobilinogen (Auto) Ur Leukocyte Esterase Urine RBC Urine WBC Ur Squamous Epith Cells Urine Bacteria Ur Random Creatinine Ur Random Sodium Ur Random Potassium Ur Random Chloride Quality Measures Quality Measures none Advance care planning discussed with:: patient Assessment & Plan Assessment Current Active Medications: Generic Name Dose Route Start Last Admin Trade Name Freq PRN Reason Stop Dose Admin Acetaminophen 650 mg 07/07/24 01:47 07/07/24 07:27 Acetaminophen 325 Mg Tablet PO 08/06/24 01:46 650 mg Q4HR PRN Administration FEVER >101 Alprazolam 0.25 mg 07/07/24 01:52 Alprazolam 0.25 Mg Tablet PO 07/12/24 01:51 Q12HR PRN Anxiety Amlodipine Besylate 5 mg 07/07/24 09:00 07/07/24 08:56 Amlodipine Besylate 5 Mg Tablet PO 08/06/24 08:59 5 mg QDAY RAMSEY Administration Aspirin 81 mg 07/07/24 09:00 07/07/24 08:56 Aspirin Ec 81 Mg Tabec PO 08/06/24 08:59 81 mg DAILY RAMSEY Administration Atorvastatin Calcium 40 mg 07/07/24 21:00 Atorvastatin Calcium 20 Mg Tablet PO 08/06/24 20:59 HS RAMSEY Doxycycline Hyclate 100 mg 07/07/24 09:00 07/07/24 08:57 Doxycycline 100 Mg Tablet PO 07/16/24 08:59 100 mg BID RAMSEY Administration Famotidine 20 mg 07/07/24 09:00 07/07/24 08:51 Famotidine Inj 10 Mg/Ml Vial 2 Ml IVP 08/06/24 08:59 20 mg BID RAMSEY Administration Hydralazine HCl 10 mg 07/06/24 23:34 Hydralazine Inj 20 Mg/Ml Vial IV 08/05/24 23:44 Q6H PRN HTN emergency Hydroxychloroquine Sulfate 200 mg 07/07/24 09:00 07/07/24 08:55 Hydroxychloroquine 200 Mg Tablet PO 07/14/24 08:59 200 mg QDAY RAMSEY Administration Heparin Sodium/Dextrose 25,000 unit in 250 mls @ 7.091 mls/hr 07/07/24 04:15 07/07/24 04:29 Heparin In D5w Ivpb IV 07/21/24 04:14 12 units/kg/hr .Q24H RAMSEY 7.091 mls/hr Administration Protocol 12 UNITS/KG/HR Ondansetron HCl 4 mg 07/07/24 01:47 07/07/24 08:48 Ondansetron Inj 2 Mg/Ml Inj 2 Ml IV 08/06/24 01:46 4 mg Q8HR PRN Administration NAUSEA OR VOMITING Protocol Phenazopyridine HCl 100 mg 07/07/24 08:00 07/07/24 07:28 Phenazopyridine Hcl 100 Mg Tablet PO 07/08/24 17:31 100 mg TIDWM RAMSEY Administration Plan Shruti Heller is a 78-year-old female with a past medical history of systemic lupus erythematosus, chronic bronchitis, GERD, rheumatoid arthritis, anxiety, hyperlipidemia and migraines who is admitted for ACS work-up after presenting with nausea, vomiting and associated chest tightness and shortness of breath. #ACS rule-out #NSTEMI type I vs type II #Chest discomfort, now resolved #Troponinemia In the ER, patient was noted to have troponin elevation, was given aspirin loading dose, clopidogrel, troponins peaked at 0.74. EKG sinus rhythm, no acute ST changes but biphasic T waves noted in anterior leads. ? Cardiology consulted, appreciate recommendations ? Aspirin 81 mg daily, atorvastatin 40 mg daily ? Nitropatch ? Heparin drip #Hypertensive urgency ? Amlodipine 5 mg PO dailly ? IV hydralazine as needed for SBP more than 180 #Hypoosmolar hyponatremia Hypoosmolar hyponatremia, serum sodium 125 initially and now 134. Asymptomatic. ? Continue to monitor daily electrolytes #Nausea/vomiting ? IV Zofran as needed #UTI Patient reported she had a history of MRSA UTI, was prescribed doxycycline by her primary care provider. ? P.o. doxycycline 100 mg twice daily #History of SLE ?Continue hydroxychloroquine #History of chronic bronchitis/COPD Patient denies any respiratory distress, does not take inhalers at home, does not require home oxygen. Currently saturating on room air ? DuoNebs as needed Hospital management: Disposition: Admit for ACS work-up DVT prophylaxis: Lovenox GI prophylaxis: Diet: cardiac Lines: PIV CODE STATUS: Full ----- Plan discussed with attending physician Dr. Carissa Zuniga MD PGY-1 Internal Medicine Attending Provider Attestation/Addendum I have discussed and was present for the essential components of the history, physical examination, diagnosis, and treatment plan with the resident. I agree with the patient's care as documented by the resident and amended herein by me. Jason Ferrer, DO. Patient seen and evaluated this AM. No acute events overnight, vital signs stable, patient afebrile, significant labs include a stable hemoglobin at 10.5, BMP okay. Last troponin had down trended to 0.33. Cardiology on board, will plan for cath today. Echocardiogram also pending. Appreciate specialist recommendations, will continue aspirin, atorvastatin, amlodipine and doxycycline for previously diagnosed UTI. Although this document has been carefully reviewed, there may still be some phonetic and other typographical errors. These errors are purely grammatical due to imperfections in the software program and should not be construed in any way to compromise the substance of the patient's medical care during this visit.
[2024-07-07 10:37] LABS: Troponin I 0.383 ng/mL (0.0-0.045)
[2024-07-07 10:57] LABS: Cardiac Risk Estimate 2.1 RATIO (3.7-5.6); Cholesterol 172 mg/dL (132-200); HDL Cholesterol 82 mg/dL (40-60); LDL Cholesterol,Calculated 81 mg/dL (0-130); Triglycerides 45 mg/dL (30-150)
[2024-07-07 10:59] LABS: Partial Thromboplastin Time 57.8 Seconds (22.0-36.0)
[2024-07-07] MEDS: SCOPOLAMINE 1 MG TDSY TOP (11:17)
--- NOTE | 2024-07-07 12:21 | PC.NURSE ---
Patient transported to [facility] via wheelchair per ROMAN Johnson. Patient is awake, alert and oriented with no signs of acute distress.
--- NOTE | 2024-07-07 14:50 | PC.SS ---
Rounding note: patient on heparin drip, pending work up as she is new admit.
--- NOTE | 2024-07-07 15:30 | PC.NURSE ---
DOCTOR LUL NOTIFIED OF PATIENT VOMITING APPROX 200MLS GREEN EMESIS. PER MD WILL ORDER SOMETHING FOR NAUSEA.
[2024-07-07] MEDS: METOCLOPRAMIDE INJ 5 MG/ML VIAL 2 ML 10 MG IVP (15:33)
--- NOTE | 2024-07-07 16:08 | PC.NURSE ---
Patient returned from [facility] via macie Mcclellan RN. Patient awake, alert and oriented- complaining of fatigue. Coban in place on right wrist.
--- NOTE | 2024-07-07 17:15 | ESOP_ITS ---
Cardiac Cath Procedure Procedure Name Date of procedure: 07/07/2024 [employer]GO TANK MECHANIC: River Perry MD PROCEDURE PERFORMED: 1. Left heart cardiac catheterization including right, left coronary angiograms and left ventriculogram 2. Ultrasound-guided access of the right radial artery 3. Conscious sedation for 30 minutes. Procedure Narrative HISTORY AND INDICATIONS: 78 year old female patient with past medical history of systemic lupus erythematosus, chronic bronchitis, GERD, rheumatoid arthritis, anxiety, hyperlipidemia and migraines. Patient was admitted to the hospital for ACS work-up after presenting with nausea, vomiting and associated chest tightness and shortness of breath, patient had positive troponins which peaked to 0.78 and patient was recommended left heart catheterization. Patient was explained the risk benefits and alternatives of performing a left heart cardiac catheterization including the risk of bleeding, heart attack, stroke and in detail and the agreeable for the procedure. Consent signed, placed in the chart and H&P updated. DESCRIPTION OF PROCEDURE: The patient was brought to the cardiac catheterization lab and all asceptic precautions were followed. Patient was given 1 Mg of Versed and 50 mcg of fentanyl for moderate conscious sedation. 2 mL of lidocaine was given in the right wrist. The right radial artery was accessed via the ultrasound guidance as well as micropuncture technique. A 6 [place] glide sheath was introduced. We then used a 5 [place] TIG 4 catheter to perform the left and right coronary angiograms as well as a left ventriculogram which showed the following findings. 1. Left ventricular ejection fraction was normal at 55 to 60% without any regional wall motion abnormalities. LVEDP was normal at 16 mmHg. There was no significant transvalvular aortic gradient. 2. Right dominant circulation 3. Left main artery is a large-caliber vessel without any significant stenosis. 4. LAD is a large sized artery with moderate to severe calcification and is moderate 50% stenosis of long proximal segment. Medium size diagonal and without show any significant disease. 5. LCx is a large sized artery without significant disiease. Medium OM1 with moderate 50% stenosis of ostial and proximal segment. Small OM2 without any significant disease. 6. RCA is a large artery with moderate 60-70% stenosis of mid segment, with mild diffuse disease of rest of RCA. Medium RPDA and RPL without any significant disease. A radial band was used to achieve the hemostasis of the right radial artery access. Patient will be monitored in the cardiac engineering psychologist for the next 2 to 3 hours and will be discharged home / telemetry later today if hemodynamically stable. Complications: None Specimens: None Blood loss: Estimated 5-10 ml Summary/findings: 1. Abnormal Stress test: LHC showed moderate CAD with 60-70% stenosis of mid RCA, 50% stenosis of ostial and proximal segment of OM1, 50% stenosis of proximal long segment of LAD and moderate to severe calcification. Rest of coronaries without any angiographically significant obstruction. 2. LVEF was normal at 60-65% and normal LVEDP of 10 mmHg. No transvalvular aortic gradient. Recommendations: 1. Recommended aggressive risk factor modification and aggressive medical treatment with aspirin, statin, and betablocker if BP permissible. 2. Recommended no lifting more than 5 pounds for next 7-10 days and follow up in my office in 7 days. River Perry MD Interventional Cardiology.
--- NOTE | 2024-07-07 17:17 | PC.SS ---
FAITH Stovall completed a face to face initial assessment with the pt at bedside in room 270. FAITH Stovall informed the pt of my role and explained the reason for the initial assessment. Pt was welcoming and cooperative. Pt was alert, aware of her place and reason why she is in the hospital. Pt verified her address and phone number as well as her insurance. Pt reports her PCP is DEJA Velez at the [facility] located on [facility] [address]. Pt reports her pharmacy is [facility] located on [address]. Pt reported she does not have a specialist provider. Pt reports she is a Full Code, with limitations. Pt reports her next of kin is her sister named Iván Rodriges and can be contacted at [phone]. Pt reports that in the event she is unable to make her own decisions, she designates her son Rommel Oviedo as her decision maker. Pt reported that prior to coming into the hospital she was ambulating on her own, with no use of DME. Pt reports she cooks, cleans, and bathes all on her own with no issues. Pt reports her niece assists her with caring for her spouse as he is dx with Dementia. Pt reports she that she will return home once d/c. Pt reports that her niece will pick her up from the hospital once she is ready for d/c. SS worries/concerns: At this time, there are no worries/concerns. Person to notify: Iván Rodriges [phone]. Pt will return home upon d/c.
--- NOTE | 2024-07-07 20:42 | PD.RESPRO ---
Documentation for date of: 07/07/24 Subjective Subjective Interval history: Examined at bedside. No acute overnight event. Denies fever, chills, headaches, chest pain, sob, cough, GI or urinary symptoms. Vitals are stable. Troponin down trended 0.738 > 0.383. Remainder chemistry panel relatively normal. Hemoglobin 11.4 > 10.5, likely dilutional. No leukocytosis. Cath today showed moderate CAD with 60-70% stenosis of mid RCA, 50% stenosis of ostial and proximal segment of OM1, 50% stenosis of proximal long segment of LAD and moderate to severe calcification. Rest of coronaries without any angiographically significant obstruction. LVEF was normal 60-65%. No transvalvular aortic gradients. Recommendations include aggressive medical optimization with ASPIRIN, statin and BETA-BLOCKERS if BP permissive. Recommended to avoid lifting more than 5 lbs for the next 7 to 10 days. Close follow-up in office within 7 days. Exam Vital Signs Temp Pulse Resp BP Pulse Ox O2 Del Method 98.2 F 81 21 H 113/73 97 Room Air 07/07/24 20:00 07/07/24 20:00 07/07/24 20:00 07/07/24 20:00 07/07/24 20:00 07/07/24 20:00 Objective Labs 07/07/24 02:10 07/07/24 02:10 Labs: Laboratory Results - last 24 hr 07/06/24 07/06/24 07/06/24 21:09 23:00 23:34 WBC 7.9 RBC 3.69 L Hgb 11.4 L Hct 32.1 L MCV 87 MCH 30.9 MCHC 35.5 RDW Std Deviation 39.8 Plt Count 301 Neut % (Auto) 43 Lymph % (Auto) 40 [place] % (Auto) 12 Eos % (Auto) 3 Baso % (Auto) 1 Neut # (Auto) 3.4 Lymph # (Auto) 3.2 [place] # (Auto) 1.0 H Eos # (Auto) 0.2 Baso # (Auto) 0.1 Immature Gran # (Auto) 0.03 H Absolute Nucleated RBC 0.00 Immature Gran % 0 Nucleated RBC % 0 PT 11.1 INR 1.0 APTT 27.1 Sodium 125 L 129 L Potassium 3.5 Chloride 92 L Carbon Dioxide 22.9 Anion Gap 10 BUN 14 Creatinine 0.9 Estim Creat Clear Calc 44.5 L eGFR > 60 BUN/Creatinine Ratio 16 Glucose 93 Calculated Osmolality 252 L Lactic Acid Calcium 9.3 Corrected Calcium 9.3 Phosphorus 3.1 Magnesium 1.8 Total Bilirubin 0.5 AST 23 ALT 13 Alkaline Phosphatase 55 Troponin I 0.068 H* 0.441 H* D B-Natriuretic Peptide 99 Total Protein 7.1 Albumin 4.5 Globulin 2.6 Albumin/Globulin Ratio 1.7 Triglycerides Cholesterol LDL Cholesterol, Calc HDL Cholesterol Cholesterol/HDL Ratio Procalcitonin 0.05 Ur Collection Type Clean Catch Urine Color Drk-Yellow A Urine Clarity Clear Urine pH 6.5 Ur Specific Portal 1.007 Urine Protein Negative Urine Glucose (UA) Negative Urine Ketones Negative Urine Blood 2+ A Urine Nitrite Positive Urine Bilirubin Negative Urine Urobilinogen (Auto) Negative Ur Leukocyte Esterase Positive Urine RBC 2 Urine WBC 58 H Ur Squamous Epith Cells < 1 Urine Bacteria Rare Ur Random Creatinine 24 L Ur Random Sodium 46.9 Ur Random Potassium 12 Ur Random Chloride 41.6 L 07/06/24 07/07/24 07/07/24 23:50 02:10 09:58 WBC 8.3 RBC 3.38 L Hgb 10.5 L Hct 29.9 L MCV 89 MCH 31.1 MCHC 35.1 RDW Std Deviation 39.8 Plt Count 272 Neut % (Auto) 58 Lymph % (Auto) 28 [place] % (Auto) 11 Eos % (Auto) 1 Baso % (Auto) 1 Neut # (Auto) 4.9 Lymph # (Auto) 2.4 [place] # (Auto) 0.9 H Eos # (Auto) 0.1 Baso # (Auto) 0.1 Immature Gran # (Auto) 0.02 H Absolute Nucleated RBC 0.00 Immature Gran % 0 Nucleated RBC % 0 PT INR APTT 28.1 57.8 H D Sodium 134 L Potassium 4.9 D Chloride 102 Carbon Dioxide 25.0 Anion Gap 7 BUN 12 Creatinine 1.0 Estim Creat Clear Calc 40.0 L eGFR 58 L BUN/Creatinine Ratio 12 Glucose 102 Calculated Osmolality 267 L Lactic Acid 1.6 Calcium 8.4 Corrected Calcium 8.5 Phosphorus Magnesium Total Bilirubin 0.5 AST 19 ALT 11 Alkaline Phosphatase 51 Troponin I 0.738 H* D 0.383 H* D B-Natriuretic Peptide Total Protein 6.2 Albumin 3.9 D Globulin 2.3 Albumin/Globulin Ratio 1.7 Triglycerides 45 Cholesterol 172 LDL Cholesterol, Calc 81 HDL Cholesterol 82 H Cholesterol/HDL Ratio 2.1 L Procalcitonin Ur Collection Type Urine Color Urine Clarity Urine pH Ur Specific Portal Urine Protein Urine Glucose (UA) Urine Ketones Urine Blood Urine Nitrite Urine Bilirubin Urine Urobilinogen (Auto) Ur Leukocyte Esterase Urine RBC Urine WBC Ur Squamous Epith Cells Urine Bacteria Ur Random Creatinine Ur Random Sodium Ur Random Potassium Ur Random Chloride Quality Measures Quality Measures none Assessment & Plan Assessment Current Active Medications: Generic Name Dose Route Start Last Admin Trade Name Freq PRN Reason Stop Dose Admin Acetaminophen 650 mg 07/07/24 01:47 07/07/24 07:27 Acetaminophen 325 Mg Tablet PO 08/06/24 01:46 650 mg Q4HR PRN Administration FEVER >101 Acetaminophen/Butalbital/Caffeine 1 tab 07/07/24 16:17 07/07/24 16:29 Acetamin/Caff/Butal (Fioricet) 1 Tab PO 08/06/24 16:16 1 tab Q4H PRN Administration headache Alprazolam 0.25 mg 07/07/24 01:52 Alprazolam 0.25 Mg Tablet PO 07/12/24 01:51 Q12HR PRN Anxiety Amlodipine Besylate 5 mg 07/07/24 09:00 07/07/24 08:56 Amlodipine Besylate 5 Mg Tablet PO 08/06/24 08:59 5 mg QDAY RAMSEY Administration Aspirin 81 mg 07/07/24 09:00 07/07/24 08:56 Aspirin Ec 81 Mg Tabec PO 08/06/24 08:59 81 mg DAILY RAMSEY Administration Atorvastatin Calcium 40 mg 07/07/24 21:00 Atorvastatin Calcium 20 Mg Tablet PO 08/06/24 20:59 HS RAMSEY Doxycycline Hyclate 100 mg 07/07/24 09:00 07/07/24 08:57 Doxycycline 100 Mg Tablet PO 07/16/24 08:59 100 mg BID RAMSEY Administration Famotidine 20 mg 07/08/24 09:00 Famotidine Inj 10 Mg/Ml Vial 2 Ml IVP 08/06/24 08:59 DAILY RAMSEY Hydralazine HCl 10 mg 07/06/24 23:34 Hydralazine Inj 20 Mg/Ml Vial IV 08/05/24 23:44 Q6H PRN HTN emergency Hydroxychloroquine Sulfate 200 mg 07/07/24 09:00 07/07/24 08:55 Hydroxychloroquine 200 Mg Tablet PO 07/14/24 08:59 200 mg QDAY RAMSEY Administration Ondansetron HCl 4 mg 07/07/24 01:47 07/07/24 08:48 Ondansetron Inj 2 Mg/Ml Inj 2 Ml IV 08/06/24 01:46 4 mg Q8HR PRN Administration NAUSEA OR VOMITING Protocol Phenazopyridine HCl 100 mg 07/07/24 08:00 07/07/24 18:23 Phenazopyridine Hcl 100 Mg Tablet PO 07/08/24 17:31 Not Given TIDWM RAMSEY
--- NOTE | 2024-07-07 20:48 | ESCONSULT_ITS ---
HPI Data of Consult Requesting Physician: Lowell Ferrer DO Admitting Provider: Ruslan Canada MD Attending Provider: Lowell Ferrer DO Primary Care Provider: Physician No Primary/Family Consult Narrative History of present illness: This is a 70-year-old female with PMHx of SLE, HTN, chronic bronchitis, GERD, RA/OA, anxiety, hyperlipidemia, migraines, presenting to ED with acute onset vomiting x 4 episodes. Symptoms associated with shortness of breath and chest tightness that started the night before admission. 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 Also reports several family members including children with chronic illness, a son with cancer. Overall states she is having trouble coping with all the stress. Last week she was diagnosed with MRSA UTI, currently on DOXYCYCLINE. Believes the nausea and vomiting started after initiating DOXYCYCLINE. She states she has allergies to multiple ANTIBIOTICS including PENICILLIN and SULFA DRUGS. She has never tried DOXYCYCLINE previously. She was worried she may have allergic reaction to DOXY. However, she denies rash, wheezing, atopy. She states her SLE is under controlled, she follows with rheumatology, currently on HYDROXYCHLOROQUINE. Reports no recent flareups of SLE. Prior to this acute chest tightness with shortness of breath, she has never experienced orthopnea or exertional dyspnea. Also denies lower extremity edema or swelling. She is seen by Dr. Floyd 10 years ago for concern for CHF, also given her underlying SLE, however workup at that time was negative as far she can recall. ED COURSE: * Afebrile, BP 173/83, HR 70s, RR low 20s, on room air. * CBC showed chronic anemia with hemoglobin 11.4, around baseline, PLT 301, no leukocytosis. Coag panel was normal. * CHEM panel significant for sodium 125, serum osmolarity 252, chloride 92, normal LFTs, normal renal function. * Lipid panel showed TG 45, cholesterol 172, LDL 81, HDL 82. * Troponin series 0.068 > 0.441 > 0.738 > 0.383 this morning. * EKG showed sinus rhythm without acute ST changes. * CXR suggested COPD, no pneumonia or pulmonary edema. PMHx: SLE, chronic bronchitis, GERD, RA, anxiety, hyperlipidemia, migraines PSHx: Abdominal surgery, hysterectomy, tubal ligation. Lip squamous cell removal. MEDS: Pending med rec ALLERGIES: NITROFURANTOIN (rash), anaphylactic allergy to PENICILLIN and SULFA DRUGS. Hives to TRIMETHOPRIM. FHx: Father of a heart attack, mother had pancreatic cancer, myeloma and sister. SH: Denies tobacco, alcohol, or drug use. Had 5 vaginal deliveries, 1 miscarriage and 1 . Examined at bedside. No acute overnight event. Denies fever, chills, headaches, chest pain, sob, cough, GI or urinary symptoms. Vitals are stable. Continued on HEPARIN drip. Troponin down trended 0.738 > 0.383. Remainder chemistry panel relatively normal. Hemoglobin 11.4 > 10.5, likely dilutional. No leukocytosis. Cath today showed moderate CAD with 60-70% stenosis of mid RCA, 50% stenosis of ostial and proximal segment of OM1, 50% stenosis of proximal long segment of LAD and moderate to severe calcification. Rest of coronaries without any angiographically significant obstruction. LVEF was normal 60-65%. No transvalvular aortic gradients. Recommendations include aggressive medical optimization with ASPIRIN, statin and BETA-BLOCKERS if BP permissive. Recommended to avoid lifting more than 5 lbs for the next 7 to 10 days. Close follow-up in office within 7 days. cc:: cc: Lowell Ferrer, DO Exam Vital Signs Temp Pulse Resp BP Pulse Ox O2 Del Method 98.2 F 81 21 H 113/73 97 Room Air 07/07/24 20:00 07/07/24 20:00 07/07/24 20:00 07/07/24 20:00 07/07/24 20:07/07/24 20:00 Narrative Exam GENERAL * Pleasant, well-appearing, adult female, on room air, NAD HEENT * NCAT.?SARIAH. Oral mucosa is moist. Patent Nares NECK * Supple, nontender, no thyromegaly, no meningismus, no JVD, no step offs CHEST * RRR, no m/g/r * CTAB, no w/r/r. Symmetrical chest rise. No intercostal subcostal retraction * Atraumatic, nontender, no crepitus, symmetrical expansion. ABDOMEN * Soft, flat, nontender. No guarding/rebound tenderness/masses. * Bowel sounds presents EXTREMITIES * No edema/cyanosis.? SKIN * Warm and dry, no jaundice/rashes. NEUROMUSCULAR * No lumbar or midline, no CVA, no paraspinal muscle spasm or tenderness. * Moves all 4 extremities well, with full ROM and good CSM. * HERNÁNDEZ x4, CN II-XII grossly intact. * No focal neurologic deficits. PSYCHIATRY * Normal mood and affect, cooperative, no SI or HI or hallucinations. Results Labs 07/08/24 06:10 07/08/24 06:10 Labs: Short CBC 07/06/24 07/07/24 Range/Units 21:09 02:10 WBC 7.9 8.3 (3.6-11.0) Thou/mm3 Hgb 11.4 L 10.5 L (12.0-16.0) g/dL Hct 32.1 L 29.9 L (36.0-46.0) % Plt Count 301 272 (140-440) Thou/mm3 BMP 07/06/24 07/06/24 07/07/24 21:09 23:00 02:10 Sodium 125 L 129 L 134 L Potassium 3.5 4.9 D Chloride 92 L 102 Carbon Dioxide 22.9 25.0 BUN 14 12 Creatinine 0.9 1.0 Glucose 93 102 Calcium 9.3 8.4 Cardiac Enzymes 07/06/24 07/06/24 07/07/24 Range/Units 21:09 23:00 02:10 Troponin I 0.068 H* 0.441 H* D 0.738 H* D (0.0-0.045) ng/mL 07/07/24 Range/Units 09:58 Troponin I 0.383 H* D (0.0-0.045) ng/mL Liver Function 07/06/24 07/07/24 Range/Units 21:09 02:10 Total Bilirubin 0.5 0.5 (0.3-1.2) mg/dL AST 23 19 (0-34) U/L ALT 13 11 (10-49) U/L Alkaline Phosphatase 55 51 (46-116) U/L Albumin 4.5 3.9 D (3.4-4.8) gm/dL Urine 07/06/24 Range/Units 23:34 Urine Color Drk-Yellow A (Lt Yel-Yel) Urine Clarity Clear (Clear/Hazy) Urine pH 6.5 (5.0-7.0) Ur Specific [place] 1.007 (1.001-1.035) Urine Protein Negative (Neg - Trace) Urine Glucose (UA) Negative (Negative) Quality Measures Quality Measures none Advance care planning discussed with:: patient Medications Home Medications and Allergies Home Medications ?Medication ?Instructions ?Recorded ?Confirmed ?Type famotidine 40 mg tablet 40 mg PO HS 02/11/18 5 History alprazolam 0.25 mg PO TID PRN anxiety 0 05/12/19 07/07/24 History [id number]-[id number]-nggh See Rx Instructions PO . COMPLEX 05/12/19 07/07/24 History PRN headache aspirin 81 mg tablet,delayed 81 mg PO .qod 07/19/21 History release hydroxychloroquine 200 mg tablet 200 mg PO QDAY 07/07/24 History Allergies Allergy/AdvReac Type Severity Reaction Status Date / Time nitrofurantoin Allergy Severe RASH Verified 08/21/22 08:45 butorphanol Allergy Unknown Verified 08/21/22 08:45 Penicillins Allergy Unknown Verified 08/21/22 08:45 Sulfa (Sulfonamide Allergy Unknown Verified 08/21/22 08:45 Antibiotics) sulfamethoxazole (From Allergy Hives Verified 08/21/22 08:45 Bactrim) trimethoprim (From Bactrim) Allergy Hives Verified 08/21/22 08:45 Visit Medications Acetaminophen (Acetaminophen 325 Mg Tablet) 650 mg PO Q4HR PRN PRN Reason: FEVER >101 Stop: 08/06/24 01:46 Last Admin: 07/07/24 07:27 Dose: 650 mg Acetaminophen/Butalbital/Caffeine (Acetamin/Caff/Butal (Fioricet) 1 Tab) 1 tab PO Q4H PRN PRN Reason: headache Stop: 08/06/24 16:16 Last Admin: 07/07/24 16:29 Dose: 1 tab Alprazolam (Alprazolam 0.25 Mg Tablet) 0.25 mg PO Q12HR PRN PRN Reason: Anxiety Stop: 07/12/24 01:51 Amlodipine Besylate (Amlodipine Besylate 5 Mg Tablet) 5 mg PO QDAY [facility]SE[facility] Stop: 08/06/24 08:59 Last Admin: 07/07/24 08:56 Dose: 5 mg Aspirin (Aspirin Ec 81 Mg Tabec) 81 mg PO DAILY [facility] Stop: 08/06/24 08:59 Last Admin: 07/07/24 08:56 Dose: 81 mg Atorvastatin Calcium (Atorvastatin Calcium 20 Mg Tablet) 40 mg PO HS [facility] Stop: 08/06/24 20:59 Doxycycline Hyclate (Doxycycline 100 Mg Tablet) 100 mg PO BID [facility] Stop: 07/16/24 08:59 Last Admin: 07/07/24 08:57 Dose: 100 mg Famotidine (Famotidine Inj 10 Mg/Ml Vial 2 Ml) 20 mg IVP DAILY [facility] Stop: 08/06/24 08:59 Hydralazine HCl (Hydralazine Inj 20 Mg/Ml Vial) 10 mg IV Q6H PRN PRN Reason: HTN emergency Stop: 08/05/24 23:44 Hydroxychloroquine Sulfate (Hydroxychloroquine 200 Mg Tablet) 200 mg PO QDAY [facility] Stop: 07/14/24 08:59 Last Admin: 07/07/24 08:55 Dose: 200 mg Ondansetron HCl (Ondansetron Inj 2 Mg/Ml Inj 2 Ml) 4 mg IV Q8HR PRN; Protocol PRN Reason: NAUSEA OR VOMITING Stop: 08/06/24 01:46 Last Admin: 07/07/24 08:48 Dose: 4 mg Phenazopyridine HCl (Phenazopyridine Hcl 100 Mg Tablet) 100 mg PO TIDWM [facility] Stop: 07/08/24 17:31 Last Admin: 07/07/24 18:23 Dose: Not Given Discontinued Medications Acetaminophen/Butalbital/Caffeine (Acetamin/Caff/Butal (Fioricet) 1 Tab) 1 tab PO X1 ONE Stop: 07/07/24 08:02 Last Admin: 07/07/24 08:57 Dose: 1 tab Alprazolam (Alprazolam 0.25 Mg Tablet) 0.25 mg PO X1 ONE Stop: 07/06/24 23:37 Last Admin: 07/06/24 23:59 Dose: 0.25 mg Aspirin (Aspirin 325 Mg Tablet) 325 mg PO X1 ONE Stop: 07/06/24 23:30 Last Admin: 07/06/24 23:58 Dose: 325 mg Clopidogrel Bisulfate (Clopidogrel Bisulfate 75 Mg Tablet) 75 mg PO X1 ONE Stop: 07/07/24 01:14 Last Admin: 07/07/24 01:52 Dose: 75 mg Doxycycline Hyclate (Doxycycline 100 Mg Tablet) 100 mg PO X1 ONE Stop: 07/06/24 23:46 Last Admin: 07/06/24 23:59 Dose: 100 mg Doxycycline Hyclate (Doxycycline 100 Mg Tablet) 100 mg PO BID [facility] Stop: 07/17/24 08:59 Enoxaparin Sodium (Enoxaparin Sod Inj 40 Mg/0.4 Ml Syringe) 40 mg SC DAILY [facility] Stop: 07/21/24 08:59 Famotidine (Famotidine Inj 10 Mg/Ml Vial 2 Ml) 20 mg IVP BID [facility]SE[facility] Stop: 08/06/24 08:59 Last Admin: 07/07/24 08:51 Dose: 20 mg Heparin Sodium (Porcine) (Heparin Sod Inj 5000 Unit/Ml Vial) 1,850 unit 30 unit/kg (1850 unit) IV X1 ONE; Protocol Stop: 07/07/24 03:30 Heparin Sodium (Porcine) (Heparin Sod Inj 5000 Unit/Ml Vial) 3,550 unit 60 unit/kg (3550 unit) IV X1 ONE; Protocol Stop: 07/07/24 04:10 Last Admin: 07/07/24 04:29 Dose: 3,550 unit Sodium Chloride (Ns) 500 mls @ 999 mls/hr IV .Q31M ONE Stop: 07/07/24 00:00 Last Admin: 07/06/24 23:50 Dose: Not Given Sodium Chloride (Ns) 1,000 mls @ 999 mls/hr IV .Q1H1M ONE Stop: 07/07/24 00:39 Last Infusion: 07/07/24 01:36 Dose: Infused Magnesium Sulfate (Magnesium Sulfate Ivpb) 2 gm in 50 mls @ 25 mls/hr IV X1 ONE Stop: 07/07/24 03:06 Last Admin: 07/07/24 01:52 Dose: 25 mls/hr Heparin Sodium/Dextrose (Heparin In D5w Ivpb) 25,000 unit in 250 mls @ 7.091 mls/hr IV .Q24H RAMSEY; Protocol Stop: 07/21/24 04:14 Last Titration: 07/07/24 12:13 Dose: 0 units/kg/hr, 0 mls/hr Metoclopramide HCl (Metoclopramide Inj 5 Mg/Ml Vial 2 Ml) 10 mg IVP X1 ONE; Protocol Stop: 07/07/24 15:30 Last Admin: 07/07/24 15:33 Dose: 10 mg Nitroglycerin (Nitroglycerin Oint 2% 1 Inch Packet) 1 inch TOP X1 ONE Stop: 07/07/24 00:17 Last Admin: 07/07/24 00:46 Dose: 1 inch Ondansetron HCl (Ondansetron Odt 4 Mg Tabrap) 4 mg PO X1 ONE; Protocol Stop: 07/06/24 20:58 Last Admin: 07/06/24 21:00 Dose: 4 mg Pantoprazole Sodium (Pantoprazole Inj 40 Mg Vial) 40 mg IVP X1 ONE Stop: 07/06/24 23:30 Last Admin: 07/06/24 23:59 Dose: 40 mg Potassium Chloride (Potassium Chloride 10% 20 Meq/15 Ml Udc) 40 meq GT X1 ONE Stop: 07/06/24 23:30 Last Admin: 07/06/24 23:58 Dose: 40 meq Scopolamine (Scopolamine 1 Mg Tdsy) 1 mg TOP X1 ONE Stop: 07/07/24 11:10 Last Admin: 07/07/24 11:17 Dose: 1 mg Assessment & Plan Plan This is a 70-year-old female with PMHx of SLE, HTN, chronic bronchitis, GERD, RA/OA, anxiety, hyperlipidemia, migraines, presenting to ED with acute onset vomiting x 4 episodes. Symptoms associated with shortness of breath and chest tightness that started the night before admission. She was admitted for ACD work-up and was started on HEPARIN drip protocol. Acute Coronary Syndrome NSTEMI Type 1 vs Type 2 Presented with acute episode of chest tightness and shortness of breath following 4 episodes of vomiting. Describes the pain as pressure-like sensation, substernal, nonradiating, without diaphoresis, rates the pain as severe. No previous similar symptoms. She had Troponin series 0.068 > 0.441 > 0.738. No previous cardiac illnesses, however had a concern for CHF 10 years ago and work- up was negative at the time to the best of her knowledge. Lipid panel showed TG 45, cholesterol 172, LDL 81, HDL 82. BNP was 99. Her symptoms and uptrending troponin despite HEPARIN drip concerning for ACS. Subsequently, cath was performed today showed moderate CAD with 60-70% stenosis of mid RCA, 50% stenosis of ostial and proximal segment of OM1, 50% stenosis of proximal long segment of LAD and moderate to severe calcification. Rest of coronaries without any angiographically significant obstruction. LVEF was normal 60-65%. No transvalvular aortic gradients. Recommendations include aggressive medical optimization with ASPIRIN, statin and BETA-BLOCKERS if BP permissive. Recommended to avoid lifting more than 5 lbs for the next 7 to 10 days. Close follow-up in office within 7 days. ? Continue ATORVASTATIN 40 mg daily ? Continue ASPIRIN 81 mg daily ? Recommended BETA-TERENCE if BP permits ? Encourage oral hydration, control ? Follow-up TSH, free T4, A1c ? Follow-up in office in 1 week. Hypertensive urgency HTN, HLD On presentation BP 173/83, HR 70s. BP controlled with current medication. Normotensive today Lipid panel showed TG 45, cholesterol 172, LDL 81, HDL 82. BNP was 99. Vital stable. ? Continue AMLODIPINE ? Continue ATORVASTATIN ? Continue HYDRALAZINE Hypoosmolar hyponatremia Nausea and vomiting. UTI SLE Chronic bronchitis/COPD ? Managed by primary team Thank you for the opportunity to participate in the patient's care. Case was discussed with attending, Dr. Perry. Shyann Dickson, DO PGYI Attending Provider Attestation/Addendum I have personally seen and examined the patient separately on the above date of service and discussed the plan of care with the resident. I reviewed the resident Dr. Shyann Dickson consultation progress note and agree with the resident findings and plan in the note above and have also edited the documentation to reflect my findings and plan. A 70-year-old female with a past medical history of SLE, essential hypertension, chronic bronchitis, osteoarthritis/rheumatoid arthritis, anxiety, hyperlipidemia, migraine headaches presented to the emergency department for further evaluation of shortness of breath, chest tightness, nausea as well as some vomiting. Patient apparently has been diagnosed with a UTI recently and was started on doxycycline last week and yesterday patient started having some shortness of breath and chest tightness that she never experienced before and was around 8/10 in intensity and also patient had significant nausea. Patient did also have an episode of vomiting without any bloody contents. 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 Also one of her son is diagnosed with cancer. Patient has also history of SLE follows up with rheumatology. Cardiology was consulted for further evaluation of the chest pain and chest pressure. The troponins were rising and was 0.068 and repeat was 0.4 and third troponin was 0.7. EKG showed normal sinus rhythm without any major acute ST-T changes history of ischemia. Patient appeared to be mildly dehydrated and had sodium of 125 which improved later. Renal function was normal hemoglobin was 11.4 and showing mild chronic anemia. Chest x-ray without any acute pathology. UA was positive with nitrates as well as leukocyte. Assessment and plan 1. Acute coronary syndrome 2. NSTEMI type I versus type II 3. Hypertensive urgency 4. Hyperlipidemia 5. Urinary tract infection 6. SLE 7. Chronic bronchitis 8. Osteoarthritis/rheumatoid arthritis 9. Migraine headaches 10. GERD As described above patient did have typical chest pain which was substernal and pressure-like sensation 8/10 in intensity and associated with nausea, vomiting as well as some sweating. Patient does have significant risk factors including her age, hypertension, hyperlipidemia, SLE as well as family history of heart disease. Troponins were rising up to 0.7 and patient was started on heparin drip for the elevated troponins and NSTEMI. Patient was recommended left heart cardiac catheterization and was explained clearly there is benefits and alternatives of performing the left heart cardiac catheterization including the risk of bleeding, heart attack, stroke and in detail. Patient agreeable for the procedure and will be done later this afternoon. Patient kept NPO. Continue heparin drip until the cardiac catheterization. Patient received aspirin 325 mg x 1 yesterday and continue aspirin 81 mg once daily High intensity statin TSH A1c and free T4 for further cardiac restratification. Patient blood pressure was elevated on admission was 173/83 mmHg. Home medications includes only amlodipine 10 mg once daily as well as hydralazine. Will start beta-terence given her NSTEMI after the cardiac catheterization and will start low-dose Coreg 3.125 mg twice daily. UTI and antibiotics Hypoosmolar hyponatremia mostly secondary to dehydration and poor oral intake in the setting of nausea and vomiting. Management of rest of the medical conditions as per primary team and other consultants. Thank you for the consult and allowing me to participate in the care of the patient. Cardiology will continue to follow. River Perry M.D. Interventional Cardiology
[2024-07-07] MEDS: ALPRazoLAM 0.25 MG TABLET PO (20:53)
[2024-07-07] MEDS: ATORVASTATIN CALCIUM 20 MG TABLET 40 MG PO (20:54)
[2024-07-08] VITALS: BP 119/62; PULSE 75; PULSE 76; RESP 18; TEMP 36.7; O2SAT 99
[2024-07-08 04:00] VITALS: BP 118/60; PULSE 72; PULSE 73; RESP 15; TEMP 37.1; O2SAT 100
[2024-07-08 06:00] VITALS: BMI 23.1
[2024-07-08 06:45] LABS: Basophils # (Auto) 0.1 Thou/mm3 (0.0-0.2); Basophils % (Auto) 1 % (0-2.5); Eosinophils # (Auto) 0.3 Thou/mm3 (0.0-0.5); Eosinophils % (Auto) 3 % (0-10); Hematocrit 33.8 % (36.0-46.0); Hemoglobin 11.6 g/dL (12.0-16.0); Immature Granulocytes % (Auto) 0 % (0-0); Immature Granulocytes Auto 0.03 Thou/mm3 (0.00-0.00); Lymphocytes # (Auto) 2.3 Thou/mm3 (1.0-4.8); Lymphocytes % (Auto) 24 % (10-50); Mean Corpuscular HGB Conc 34.3 g/dl (31.0-37.0); Mean Corpuscular Hemoglobin 31.3 pg (25.0-35.0); Mean Corpuscular Volume 91 fL (80-100); Monocytes # (Auto) 1.2 Thou/mm3 (0.0-0.8); Monocytes % (Auto) 13 % (0-12); Neutrophils # (Auto) 5.9 Thou/mm3 (1.8-7.7); Neutrophils % (Auto) 60 % (37-80); Nucleated Red Blood Cell % 0 /100 WBC (0); Platelet Count 302 Thou/mm3 (140-440); RDW Standard Deviation 41.3 fL (36.4-46.3); Red Blood Count 3.71 Miln/mm3 (4.00-5.20); White Blood Count 9.8 Thou/mm3 (3.6-11.0)
[2024-07-08 07:07] LABS: Alanine Aminotransferase 11 U/L (10-49); Albumin, Serum 4.1 gm/dL (3.4-4.8); Albumin/Globulin Ratio 1.6 (1.2-2.2); Alkaline Phosphatase 56 U/L (46-116); Anion Gap 7 (7-16); Aspartate Amino Transferase 23 U/L (0-34); BUN/Creatinine Ratio 13 Ratio (12-20); Bilirubin,Total 0.6 mg/dL (0.3-1.2); Blood Urea Nitrogen 14 mg/dL (9-23); Calcium 8.8 mg/dL (8.3-10.6); Calcium (Corrected) 8.8 mg/dL (8.5-10.1); Carbon Dioxide 26.3 mMol/L (20.0-31.0); Chloride 98 mMol/L (98-107); Creatinine (Component) 1.1 mg/dL (0.6-1.3); Estimated Creatinine Clearance 36.4 mL/min (>60); Globulin 2.5 gm/dL (2.3-3.5); Glucose 115 mg/dL (74-106); Osmolality,Calculated 264 (275-295); Potassium 4.5 mMol/L (3.4-5.1); Sodium 131 mMol/L (136-145); Thyroid Stimulating Hormone 3.59 uIU/mL (0.55-4.78); Total Protein 6.6 gm/dL (5.7-8.2); eGFR 51 See Note
[2024-07-08 07:09] LABS: Glucose Estimated Average 103 mg/dL (80-131); Hemoglobin A1C 5.2 % Hgb (4.8-6.0)
[2024-07-08] MEDS: ONDANSETRON INJ 2 MG/ML INJ 2 ML 4 MG IV (07:49)
[2024-07-08] MEDS: PHENAZOPYRIDINE HCL 100 MG TABLET PO (07:50)
[2024-07-08 08:00] VITALS: BP 130/49; PULSE 80; RESP 20; TEMP 37; O2SAT 97
[2024-07-08] MEDS: DOXYCYCLINE 100 MG TABLET PO (09:15)
[2024-07-08] MEDS: HYDROXYCHLOROQUINE 200 MG TABLET PO (09:15)
[2024-07-08] MEDS: ASPIRIN EC 81 MG TABEC PO (09:15)
[2024-07-08] MEDS: FAMOTIDINE INJ 10 MG/ML VIAL 2 ML 20 MG IVP (09:15)
--- NOTE | 2024-07-08 09:20 | ESDS_ITS ---
Planned Discharge Date 07/08/24 DS: Providers Provider Date of admission: 07/07/24 01:07 Primary care physician: Physician No Primary/Family Admitting Provider: Ruslan Canada MD Attending Provider on Admission: Lowell Ferrer DO Consults: 07/07/24 01:55 Consult to Cardiology Routine Comment: Consulting Provider: River Perry Attending Provider on DC: Yue Shane MD Discharging Provider: Yue hSane MD DS: Diagnosis Problem List Completed Was Problem List Reviewed/Reconciled?: Yes Hospital Course Hospital Course Hospital course: Ms. Heller is a 78-year-old female with a past medical history significant for systemic lupus erythematosus, chronic bronchitis, GERD, rheumatoid arthritis, anxiety, hyperlipidemia and migraines who presented with chest tightness and nausea/vomiting and admitted for ACS work-up on 07/07/24. Patient noted to have an elevated troponin that peaked at 0.74 and EKG showed biphasic T waves in anterior leads. In addition, patient also was experiencing n/v from her recent medication, Doxycycline for her MRSA UTI. Patient's nausea resolved with a lower but still effective dose of 100mg twice daily with Zofran as needed prior to meals. Cardiology was consulted and performed heart angiogram which showed moderate CAD with 60-70% stenosis of mid RCA, 50% stenosis of ostial and proximal segment of OM1, 50% stenosis of proximal long segment of LAD and moderate to severe calcification. Rest of coronaries did not have significant obstruction and no transvalvular aortic gradients . LVEF was normal 60-65%. Patient's BP also initially elevated on admission, but stable on antihypertensive, Amlodipine. Pt seen and examined at bedside. Pt denies any complaints. Pt is medically cleared to be discharged today with the following instructions: Please continue taking your home medications as prescribed. Please continue taking Aspirin 81mg, Atorvastatin 40mg once daily at night, Metoprolol 25mg twice daily, and continue taking your Doxycycline 100mg twice daily until you finish your course. Please make an appointment with your PCP within 1 week or if you don't have a PCP, you can make an appointment at the [facility] at [phone]. You can make an appointment with Dr. Zuniga Please call to schedule a follow up appointment to with Dr. Perry, (Consumer Insight Manager), in his office within one week upon discharge. Telephone number: [phone] Address: [address], [address], [place], [address]. Please call to schedule a follow up appointment with your primary care doctor 1-2 weeks after discharge so he/she can make further recommendations about your overall health condition. Hospital discharge diagnoses treated during hospital stay: #ACS rule-out #NSTEMI type I vs type II #Chest discomfort, now resolved #Troponinemia #Hypertensive urgency #Hypoosmolar hyponatremia #Nausea/vomiting #UTI #History of SLE #History of chronic bronchitis/COPD Patient's plan and care discussed with my attending, Dr. Ferrer. Yue Shane MD PGY-2 Status at Discharge Cognitive/behavioral status at discharge: stable Functional status at discharge: independent ambulation Overall status at discharge: patient is progressing back to baseline Time Spent with Patient Time attestation: Total time spent providing and/or coordinating discharge services: 35 Time spent: Greater than 30 minutes Exam Vital Signs Temp Pulse Resp BP Pulse Ox O2 Del Method 98.8 F 72 15 118/60 100 Room Air 07/08/24 04:00 07/08/24 04:00 07/08/24 04:00 07/08/24 04:00 07/08/24 04:00 07/08/24 04:00 Narrative Exam General Appearance: Pt in NAD laying comfortably in bed. HEENT: NC/AT, no scleral icterus, no conjunctival pallor, MMM Lungs: CTAB, no wheezes or crackles appreciated CVS: RRR, S1/S2 heard, no murmurs or rubs appreciated ABD: Soft, non-tender, non-distended, BS + in all 4 quadrants EXT: no deformity/edema/lesions/cyanosis/clubbing, radial pulses 2+ BL, DP pulses 2 + BL SKIN: Skin exam normal without any rashes. Neuro: A&O x 3. No gross neurological deficits. Motor and sensory grossly intact in B/L UL and LL. Psych: Appropriate mood and affect Discharge Plan Plan Patient Disposition: HOME (Self Care) Prescriptions/Referrals Prescriptions/Med Rec: New amlodipine 5 mg Tablet 5 mg PO QDAY Qty: 30 0RF atorvastatin 40 mg tablet 40 mg PO HS 30 Days Qty: 30 0RF doxycycline hyclate 100 mg Tablet 100 mg PO BID 7 Days Qty: 14 0RF ondansetron 4 mg tablet,disintegrating 4 mg PO Q8H PRN (Reason: nausea and vomiting) Qty: 14 0RF metoprolol succinate 25 mg tablet extended release 24 hr 25 mg PO BID Qty: 60 0RF Continued aspirin 81 mg tablet,delayed release (DR/EC) 81 mg PO .qod alprazolam [Xanax] 0.25 mg PO TID PRN (Reason: anxiety) Rx Instructions: Take one tablet by mouth three times daily as needed for anxiety. [id number] [Fioricet] See Rx Instructions PO .COMPLEX PRN (Reason: headache) Rx Instructions: orally PRN; Take 1 to 2 tablets by mouth every 4 hours as needed for headache. ondansetron 4 mg tablet,disintegrating See Rx Instructions .Route .COMPLEX Qty: 20 0RF Rx Instructions: 1-2 tabs SL Q6-8 hours prn nausea / vomiting famotidine 40 mg Tablet 40 mg PO HS diphenhydramine HCl [Benadryl] 25 mg capsule 25 mg PO Q8H PRN (Reason: allergic symptoms) Qty: 30 0RF hydroxychloroquine 200 mg tablet 200 mg PO QDAY Patient Comments: TAKE ONE TABLET BY MOUTH EVERY DAY Discontinued methenamine mandelate 1 gram tablet 1 g PO BID Rx Instructions: administer after meals and at bedtime atorvastatin 10 mg Tablet 10 mg PO HS hydrocodone-acetaminophen 5-325 mg tablet 1 tab PO BID MDD 10 PRN (Reason: pain) Qty: 6 0RF tramadol 50 mg tablet 50 mg PO TID PRN (Reason: pain) Qty: 20 0RF hydroxyzine HCl 25 mg tablet 25 mg PO TID PRN (Reason: itching) Qty: 30 0RF Referrals: River Perry MD [Physician] - Kaden Carmona MD [Resident] - No Primary/Family,Physician [Primary Care Provider] - Patient/Caregiver Discharge Instructions Other Discharge Activity Instructions:: Please continue taking your home medications as prescribed. Please continue taking Aspirin 81mg, Atorvastatin 40mg once daily at night, Metoprolol 25mg twice daily, and continue taking your Doxycycline 100mg twice daily until you finish your course. Please make an appointment with your PCP within 1 week or if you don't have a PCP, you can make an appointment at the [facility] at [phone]. You can make an appointment with Dr. Zuniga Please call to schedule a follow up appointment to with Dr. Perry, (Consumer Insight Manager), in his office within one week upon discharge. Telephone number: [phone] Address: [address], [address], [place], [address]. Please call to schedule a follow up appointment with your primary care doctor 1- 2 weeks after discharge so he/she can make further recommendations about your overall health condition. Other Discharge Diet Instructions: It is important to follow a heart healthy diet. Avoid food and drinks with added sugar. Eat a well-balanced diet with plenty of fresh vegetables; if not contraindicated by your primary care provider. Choose water to hydrate yourself over any other type of drinks. Talk to your primary doctor for further advice for a diet that fits your nutritional body requirements and for an adequate exercise program to keep and improve your overall health condition. ALWAYS FOLLOW/CONSIDER YOUR PRIMARY CARE DOCTOR'S MEDICAL ADVICE BEFORE MAKING ANY CHANGES TO YOUR DIET OR LEVEL OF ACTIVITY. Should you have any other questions or concerns on regards today?s procedure; feel free to contact us to Worker'S Compensation Claims Examiner . Education Materials: CAD, Hyponatremia Dc, Preventing Surgical Site Infections, Eating Heart-Healthy Foods, Procedural Sedation, Cardiac Cath Transradial, [facility] Instructions- Citizen Of [place] Print Language: Citizen Of [place] Activity Restrictions/Additional Instructions: Please call to schedule a follow up appointment to with Dr. Perry, (Consumer Insight Manager), in his office within one week upon discharge. Telephone number: [phone] Address: [address], [address], [place], [address]. Please call to schedule a follow up appointment with your primary care doctor 1- 2 weeks after discharge so he/she can make further recommendations about your overall health condition. DO NOT drive or operate any motor vehicle, heavy equipment, or machinery in the next 24 hours. DO NOT perform any activity that requires you to be fully alert in the next 24 hours. DO NOT sign any documentation in the next 24 hours that requires a full understanding of what you are signing for. DO NOT perform any strenuous physical activity in the next 5 days. DO NOT bend or twist your wrist for the next 3 days. DO NOT lift anything that weights equal or over 5 pounds with your right Arm/Hand within the next 3 days. Perform light activity only with your right Hand/Arm for the next 3 days. DO NOT strain your bowel. If you experience constipation, drink plenty of fl uids, especially water, if not contraindicated by your doctor. In addition, add foods rich in fiber. Should you experience constipation, talk to your doctor about other options that might help you alleviate it. Keep your blood pressure under control. If you take blood pressure medication, continue to take it as prescribed, if not contraindicated by your doctor, doing so; helps to prevent post-complications such as bleeding. Take your new/previous medication as directed by the doctor. If there is no changes, continue to take medication at your usual time. After 3 days, start increasing the level of physical activity with your Hand/Arm gradually in the following 5 days. Look out for signs of infection such as tenderness, redness, or drainage to your right wrist. If any, report them to your primary care doctor immediately. You will go home with your right wrist covered by two different dressings, a clear dressing and a Coban wrap. The Coban wrap (Color Dressing on Top) must be removed in 24 hours after it was placed. The clear dressing (Dressing that is attached to your skin) Must be removed in 48 hours after it was placed. If you decide to shower or to take a bath, NOT RECOMMENDED IN THE FIRST 24 HOURS AFTER THE PROCEDURE; please keep dressing clean and dry by covering it. Or, if you prefer, take a sponge bath instead. After removing your dressing, you can gently clean your surgical site with soap and water and pad dry it. DO NOT rub site to prevent complication such as bleeding. DO NOT apply any lotions, creams, or powders on the surgical site until your skin completely heals (5 days or more). Should you experience any type of complications such as pain, change in color, change in temperature, a bruise that increases in size and color, a lump (Hard or soft) that develops and increases in size, numbness, or loss of sensation in your Right arm/Wrist, Chest pain, or shortness of breath; PLEASE GO TO THE NEAREST EMERGENCY ROOM IMMEDIATELY. Should you have any other questions or concerns on regards today?s procedure; feel free to contact us to Worker'S Compensation Claims Examiner . Stand Alone Forms: Sobeida Award Info., Patient Portal Info Letter Discharge Order Discharge Orders: Discharge (Routine); Ordered 07/08/24 Ordered By: Yue Shane Quality Discharge Quality Measures VTE prophylaxis Attestestation MD Attestation I have discussed and was present for the essential components of the discharge history, physical examination, diagnosis, and discharge treatment plan with the resident. I agree with the patient's discharge care as documented by the resident and amended herein by me. Jason Ferrer, . The patient understood all discharge instructions, all questions were answered satisfactorily. The patient was instructed to return to the Emergency Department is symptoms worsened or persisted. Patient was stable, afebrile, tolerating p.o. intake and ambulatory at time of discharge Although this document has been carefully reviewed, there may still be some phonetic and other typographical errors. These errors are purely grammatical due to imperfections in the software program and should not be construed in any way to compromise the substance of the patient's medical care during this visit.
[2024-07-08] MEDS: ACETAMIN/CAFF/BUTAL (Fioricet) 1 TAB PO (09:21)
--- NOTE | 2024-07-08 09:41 | PC.SS ---
Update: Plan is to discharge patient home today.
[2024-07-08 12:00] VITALS: BP 132/67; PULSE 73; PULSE 76; RESP 18; TEMP 36.8; O2SAT 93
[2024-07-08 13:05] VITALS: BP 124/57; PULSE 76; RESP 20; TEMP 37.1; O2SAT 95
--- NOTE | 2024-07-08 14:01 | ESPR_ITS ---
Documentation for date of: 07/08/24 Subjective Subjective Interval history: Examined at bedside. Doing well today. Denies fever, chills, headaches, chest pain, sob, cough, GI or urinary symptoms. Afebrile, BP 124/57, HR 76. Chemistry panel significant for sodium 131, GLUCOSE 115, EGFR 51, hemoglobin 11.6 at baseline, remainder CBC within normal limit. She will discharge home with METOPROLOL ER 25 mg and STATIN, continue with DOXYCYCLINE outpatient for MRSA UTI. Advised against lift >5 lbs for the next 10 days. Will see her in office in 1-2 weeks. Exam Vital Signs Temp Pulse Resp BP Pulse Ox O2 Del Method 98.8 F 76 20 124/57 L 95 Room Air 07/08/24 13:05 07/08/24 13:05 07/08/24 13:05 07/08/24 13:05 07/08/24 13:05 07/08/24 13:05 Narrative Exam GENERAL * Pleasant, well-appearing, adult female, on room air, NAD HEENT * NCAT.?SARIAH. Oral mucosa is moist. Patent Nares NECK * Supple, nontender, no thyromegaly, no meningismus, no JVD, no step offs CHEST * RRR, no m/g/r * CTAB, no w/r/r. Symmetrical chest rise. No intercostal subcostal retraction * Atraumatic, nontender, no crepitus, symmetrical expansion. ABDOMEN * Soft, flat, nontender. No guarding/rebound tenderness/masses. * Bowel sounds presents EXTREMITIES * No edema/cyanosis.? SKIN * Warm and dry, no jaundice/rashes. NEUROMUSCULAR * No lumbar or midline, no CVA, no paraspinal muscle spasm or tenderness. * Moves all 4 extremities well, with full ROM and good CSM. * HERNÁNDEZ x4, CN II-XII grossly intact. * No focal neurologic deficits. PSYCHIATRY * Normal mood and affect, cooperative, no SI or HI or hallucinations. Objective Labs 07/08/24 06:10 07/08/24 06:10 Labs: Laboratory Results - last 24 hr 07/08/24 06:10 WBC 9.8 RBC 3.71 L Hgb 11.6 L Hct 33.8 L MCV 91 MCH 31.3 MCHC 34.3 RDW Std Deviation 41.3 Plt Count 302 D Neut % (Auto) 60 Lymph % (Auto) 24 Gordon % (Auto) 13 H Eos % (Auto) 3 Baso % (Auto) 1 Neut # (Auto) 5.9 Lymph # (Auto) 2.3 Gordon # (Auto) 1.2 H Eos # (Auto) 0.3 Baso # (Auto) 0.1 Immature Gran # (Auto) 0.03 H Absolute Nucleated RBC 0.00 Immature Gran % 0 Nucleated RBC % 0 Sodium 131 L Potassium 4.5 Chloride 98 Carbon Dioxide 26.3 Anion Gap 7 BUN 14 Creatinine 1.1 Estim Creat Clear Calc 36.4 L eGFR 51 L BUN/Creatinine Ratio [address] Glu mg/dL 103 Hemoglobin A1c 5.2 Calculated Osmolality 264 L Calcium 8.8 Corrected Calcium 8.8 Total Bilirubin 0.6 AST 23 ALT 11 Alkaline Phosphatase 56 Total Protein 6.6 Albumin 4.1 Globulin 2.5 Albumin/Globulin Ratio 1.6 TSH 3.59 Free T4 1.10 Quality Measures Quality Measures none Advance care planning discussed with:: patient Assessment & Plan Plan This is a 70-year-old female with PMHx of SLE, HTN, chronic bronchitis, GERD, RA/OA, anxiety, hyperlipidemia, migraines, presenting to ED with acute onset vomiting x 4 episodes. Symptoms associated with shortness of breath and chest tightness that started the night before admission. She was admitted for ACD work-up and was started on HEPARIN drip protocol. Acute Coronary Syndrome NSTEMI Type 1 vs Type 2 Presented with acute episode of chest tightness and shortness of breath following 4 episodes of vomiting. Describes the pain as pressure-like sensation, substernal, nonradiating, without diaphoresis, rates the pain as severe. No previous similar symptoms. She had Troponin series 0.068 > 0.441 > 0.738. No previous cardiac illnesses, however had a concern for CHF 10 years ago and work- up was negative at the time to the best of her knowledge. Lipid panel showed TG 45, cholesterol 172, LDL 81, HDL 82. BNP was 99. Her symptoms and uptrending troponin despite HEPARIN drip concerning for ACS. Subsequently, cath was performed today showed moderate CAD with 60-70% stenosis of mid RCA, 50% stenosis of ostial and proximal segment of OM1, 50% stenosis of proximal long segment of LAD and moderate to severe calcification. Rest of coronaries without any angiographically significant obstruction. LVEF was normal 60-65%. No transvalvular aortic gradients. Recommendations include aggressive medical optimization with ASPIRIN, statin and BETA-BLOCKERS if BP permissive. Recommended to avoid lifting more than 5 lbs for the next 7 to 10 days. Close follow-up in office within 1-2 weeks. ? Continue ATORVASTATIN 40 mg daily ? Continue ASPIRIN 81 mg daily ? Continue METOPROLOL ER 25 MG BID ? Encourage oral hydration, control ? Follow-up TSH, free T4, A1c ? Follow-up in office in 1 week. Hypertensive urgency HTN, HLD On presentation BP 173/83, HR 70s. BP controlled with current medication. Normotensive today Lipid panel showed TG 45, cholesterol 172, LDL 81, HDL 82. BNP was 99. Vital stable. ? Continue AMLODIPINE ? Continue ATORVASTATIN ? Continue HYDRALAZINE Hypoosmolar hyponatremia Nausea and vomiting. UTI SLE Chronic bronchitis/COPD ? Managed by primary team Thank you for the opportunity to participate in the patient's care. Case was discussed with attending, Dr. Perry. Shyann Dickson DO PGYI Attending Provider Attestation/Addendum I have personally seen and examined the patient separately on the above date of service and discussed the plan of care with the resident. I reviewed the resident Dr. Shyann Dickson consultation progress note and agree with the resident findings and plan in the note above and have also edited the documentation to reflect my findings and plan. A 70-year-old female with a past medical history of SLE, essential hypertension, chronic bronchitis, osteoarthritis/rheumatoid arthritis, anxiety, hyperlipidemia, migraine headaches presented to the emergency department for further evaluation of shortness of breath, chest tightness, nausea as well as some vomiting. Patient apparently has been diagnosed with a UTI recently and was started on doxycycline last week and yesterday patient started having some shortness of breath and chest tightness that she never experienced before and was around 8/10 in intensity and also patient had significant nausea. Patient did also have an episode of vomiting without any bloody contents. 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 Also one of her son is diagnosed with cancer. Patient has also history of SLE follows up with rheumatology. Cardiology was consulted for further evaluation of the chest pain and chest pressure. The troponins were rising and was 0.068 and repeat was 0.4 and third troponin was 0.7. EKG showed normal sinus rhythm without any major acute ST-T changes history of ischemia. Patient appeared to be mildly dehydrated and had sodium of 125 which improved later. Renal function was normal hemoglobin was 11.4 and showing mild chronic anemia. Chest x-ray without any acute pathology. UA was positive with nitrates as well as leukocyte. Assessment and plan 1. Acute coronary syndrome 2. NSTEMI type I versus type II 3. Hypertensive urgency 4. Hyperlipidemia 5. Urinary tract infection 6. SLE 7. Chronic bronchitis 8. Osteoarthritis/rheumatoid arthritis 9. Migraine headaches 10. GERD As described above patient did have typical chest pain which was substernal and pressure-like sensation 8/10 in intensity and associated with nausea, vomiting as well as some sweating. Patient does have significant risk factors including her age, hypertension, hyperlipidemia, SLE as well as family history of heart disease. Troponins were rising up to 0.7 and patient was started on heparin drip for the elevated troponins and NSTEMI. Patient was recommended left heart cardiac catheterization and was explained clearly there is benefits and alternatives of performing the left heart cardiac catheterization. LHC showed moderate CAD with 60-70% stenosis of mid RCA, 50% stenosis of ostial and proximal segment of OM1, 50% stenosis of proximal long segment of LAD and moderate to severe calcification. Rest of coronaries without any angiographically significant obstruction. LVEF was normal at 60-65% and normal LVEDP of 10 mmHg. No transvalvular aortic gradient. Echocardiogram was performed on 07/07/2024 showed normal LV size and function, normal RV size and function. Estimated LVEF of 55 to 60%. Diastolic dysfunction stage I. Mildly elevated RVSP 35 mmHg. Moderate aortic valve sclerosis without stenosis. Mild MAC and mild MR. Mild TR trace PI. Mild LA dilatation. No significant pericardial effusion. High intensity statin recommend to continue aspirin 81 mg once daily, intensity statin Lipitor and will start Coreg 3.125 mg twice daily. Patient was recommended to follow-up in my office in 1 week and will continue medical management for now. TSH A1c and free T4 for further cardiac restratification. Patient blood pressure was elevated on admission was 173/83 mmHg. Home medications includes only amlodipine 10 mg once daily as well as hydralazine. Will start beta-terence given her NSTEMI after the cardiac catheterization and will start low-dose Coreg 3.125 mg twice daily. UTI and antibiotics Hypoosmolar hyponatremia mostly secondary to dehydration and poor oral intake in the setting of nausea and vomiting. Management of rest of the medical conditions as per primary team and other consultants. Thank you for the consult and allowing me to participate in the care of the patient. Cardiology will continue to follow. River Perry M.D. Interventional Cardiology
[2024-07-12 07:13] LABS: Osmolality, Urine* 195 mOsm/kg (50-1200)
== END 2024-07-08 13:15 | disposition home or self-care (01) | DRG 281 ==
LOC: SERX 07-07 00:16 → SERHOLD 07-07 01:49 → S2NX 07-07 03:35
PROVIDERS: Internal Medicine Cardiovascular Disease; Physician Assistant; Student in an Organized Health Care Education/Training Program; Admitting Provider Internal Medicine; Emergency Provider Emergency Medicine; Visit Provider Student in an Organized Health Care Education/Training Program
PROC: 4A023N7 Measurement of Cardiac Sampling and Pressure, Left Heart, Percutaneous Approach (ICD-10-PCS; principal; 2024-07-07 12:30)
DX: I21.4 Non-ST elevation (NSTEMI) myocardial infarction (principal); E87.1 Hypo-osmolality and hyponatremia; N39.0 Urinary tract infection, site not specified; I16.1 Hypertensive emergency; I25.10 Atherosclerotic heart disease of native coronary artery without angina pectoris; I16.0 Hypertensive urgency; I10 Essential (primary) hypertension; M06.9 Rheumatoid arthritis, unspecified; F41.9 Anxiety disorder, unspecified; E78.5 Hyperlipidemia, unspecified; K21.9 Gastro-esophageal reflux disease without esophagitis; M32.9 Systemic lupus erythematosus, unspecified; G43.A0 Cyclical vomiting, in migraine, not intractable; R79.89 Other specified abnormal findings of blood chemistry; Z87.891 Personal history of nicotine dependence; J44.89 Other specified chronic obstructive pulmonary disease; Z91.148 Patient's other noncompliance with medication regimen for other reason; Z79.82 Long term (current) use of aspirin; Z86.14 Personal history of Methicillin resistant Staphylococcus aureus infection; Z79.899 Other long term (current) drug therapy; Z88.1 Allergy status to other antibiotic agents; Z90.49 Acquired absence of other specified parts of digestive tract; Z90.710 Acquired absence of both cervix and uterus; B95.62 Methicillin resistant Staphylococcus aureus infection as the cause of diseases classified elsewhere; Z88.2 Allergy status to sulfonamides; Z88.0 Allergy status to penicillin
CPT/HCPCS: 36415; 71045; 80053; 80061; 81001; 82436; 82570; 83036; 83605; 83735; 83880; 83935; 84100; 84133; 84145; 84295; 84300; 84439; 84443; 84484; 85025; 85610; 85730; 93005; 93306; 96361; 96374; 99285; J0171; J0461; J1643; J1644; J2250; J2310; J2371; J2405; J2470; J2765; J3010; J3475; J3490; J7030; Q0162; A9270

== ENCOUNTER → 2024-07-21 | Outpatient (CLI) | payer MEDICARE, SELFPAY ==
[2024-07-21 08:30] LABS: Basophils # (Auto) 0.1 Thou/mm3 (0.0-0.2); Basophils % (Auto) 1 % (0-2.5); Eosinophils # (Auto) 0.3 Thou/mm3 (0.0-0.5); Eosinophils % (Auto) 3 % (0-10); Hematocrit 35.6 % (36.0-46.0); Hemoglobin 12.1 g/dL (12.0-16.0); Immature Granulocytes % (Auto) 0 % (0-0); Immature Granulocytes Auto 0.03 Thou/mm3 (0.00-0.00); Lymphocytes # (Auto) 1.3 Thou/mm3 (1.0-4.8); Lymphocytes % (Auto) 15 % (10-50); Mean Corpuscular Hemoglobin 31.5 pg (25.0-35.0); Mean Corpuscular Volume 93 fL (80-100); Monocytes # (Auto) 0.8 Thou/mm3 (0.0-0.8); Monocytes % (Auto) 10 % (0-12); Neutrophils % (Auto) 71 % (37-80); Nucleated Red Blood Cell % 0 /100 WBC (0); Platelet Count 341 Thou/mm3 (140-440); RDW Standard Deviation 42.9 fL (36.4-46.3); Red Blood Count 3.84 Miln/mm3 (4.00-5.20); White Blood Count 8.5 Thou/mm3 (3.6-11.0)
[2024-07-21 08:49] LABS: Free T4 (Free Thyroxine) 0.92 ng/dL (0.89-1.76); Thyroid Stimulating Hormone 3.99 uIU/mL (0.55-4.78)
[2024-07-21 08:53] LABS: Vitamin B12 1729 pg/mL (211-911)
[2024-07-21 08:59] LABS: Ferritin 90 ng/mL (7.3-270.7); Iron 75 mcg/dL (50-170); Percent Iron Saturation 27 % (20-55); Total Iron Binding Capacity 275 mcg/dL (250-425); Unsaturated Iron Binding 200 (225-295)
[2024-07-27 07:04] LABS: T3 Uptake* 31 % (22-35); T3, Reverse, LC/MS/MS* 11 ng/dL (8-25)
== END | disposition home or self-care (01) ==
LOC: COPL 06:56
PROVIDERS: PCP Nurse Practitioner Family; Referring Provider Nurse Practitioner Family; Visit Provider Nurse Practitioner Family
DX: N95.0 Postmenopausal bleeding (principal); R53.83 Other fatigue; E03.9 Hypothyroidism, unspecified; I16.1 Hypertensive emergency; R79.89 Other specified abnormal findings of blood chemistry; E87.1 Hypo-osmolality and hyponatremia; D64.9 Anemia, unspecified
CPT/HCPCS: 36415; 82607; 82728; 82746; 83540; 83550; 84439; 84443; 84479; 84482; 85025

== ENCOUNTER → 2024-08-18 | Outpatient (CLI) | payer MEDICARE, SELFPAY ==
--- NOTE | 2024-08-18 11:30 | XR_ITS ---
Examination: Abdomen sonogram, complete Date and time of exam: August 18, 2024 1118 hours INDICATIONS: Epigastric pain 6 months. Technique: Multiple real-time grayscale transabdominal sonographic images of the abdomen have been obtained. Findings: Normal gallbladder Normal common bile duct 0.4 cm Pancreatic head 1.7 cm Aorta not enlarged Liver 15.6 cm irregular contour Normal hepatopedal portal venous flow Patent IVC Right kidney 9.1 cm cortex 0.9 cm Mild right hydronephrosis Left kidney 9.5 cm cortex 1.6 cm Spleen 8.2 cm IMPRESSION: Normal gallbladder Suspect primary hepatocellular disease Mild right hydronephrosis, clinical correlation advised
--- NOTE | 2024-08-18 12:00 | XR_ITS ---
Examination: Retroperitoneal ultrasound, complete Technique: Multiple high resolution grayscale images of the retroperitoneum obtained, including kidneys and bladder. Exam date and time:August 18, 2024 1128 hours INDICATIONS: Epigastric pain flank pain 6 months FINDINGS: Right kidney 9.9 cm cortex 1.8 cm Mild right hydronephrosis Left kidney 9.8 cm cortex 1.2 cm Multiple calculi, the largest in the upper pole 7 mm Contracted urinary bladder no bladder mass or bladder calculi IMPRESSION: Mild right hydronephrosis Multiple left renal calculi, the largest in the upper pole 7 mm
== END | disposition home or self-care (01) ==
PROVIDERS: PCP Nurse Practitioner Family; Referring Provider Nurse Practitioner Family; Visit Provider Nurse Practitioner Family
DX: N13.30 Unspecified hydronephrosis (principal); N20.0 Calculus of kidney
CPT/HCPCS: 76700; 76770

== ENCOUNTER → 2024-11-05 | Outpatient (CLI) | payer MEDICARE, SELFPAY ==
[2024-11-05 10:06] LABS: Collection Type, Urine Clean Catch
[2024-11-05 10:32] LABS: Basophils # (Auto) 0.1 Thou/mm3 (0.0-0.2); Basophils % (Auto) 2 % (0-2.5); Eosinophils # (Auto) 0.2 Thou/mm3 (0.0-0.5); Eosinophils % (Auto) 4 % (0-10); Hematocrit 35.4 % (36.0-46.0); Hemoglobin 12.0 g/dL (12.0-16.0); Immature Granulocytes Auto 0.02 Thou/mm3 (0.00-0.00); Lymphocytes # (Auto) 1.6 Thou/mm3 (1.0-4.8); Lymphocytes % (Auto) 31 % (10-50); Mean Corpuscular HGB Conc 33.9 g/dl (31.0-37.0); Mean Corpuscular Hemoglobin 31.3 pg (25.0-35.0); Mean Corpuscular Volume 92 fL (80-100); Monocytes # (Auto) 0.8 Thou/mm3 (0.0-0.8); Monocytes % (Auto) 15 % (0-12); Neutrophils # (Auto) 2.4 Thou/mm3 (1.8-7.7); Neutrophils % (Auto) 47 % (37-80); Nucleated Red Blood Cell # 0.00 Thou/mm3 (0.00-0.00); Nucleated Red Blood Cell % 0 /100 WBC (0); Platelet Count 303 Thou/mm3 (140-440); RDW Standard Deviation 41.9 fL (36.4-46.3); Red Blood Count 3.83 Miln/mm3 (4.00-5.20); White Blood Count 5.0 Thou/mm3 (3.6-11.0)
[2024-11-05 10:44] LABS: Bilirubin,Urine Negative (Negative); Blood,Urine 1+ (Negative); Clarity,Urine Clear (Clear/Hazy); Color,Urine Lt-Yellow (Lt Yel-Yel); Glucose, Urine Negative (Negative); Ketones,Urine Negative (Negative); Leukocyte Esterase,Urine Positive (Negative); Nitrite,Urine Negative (Negative); PH,Urine 6.0 (5.0-7.0); Protein,Urine Negative (Neg - Trace); RBC,Urine 7 /hpf (0-3); Specific Gravity,Urine 1.010 (1.001-1.035); Squamous Epithelial Cell,Urine < 1 /hpf (0-5); Urobilinogen,Urine Negative mg/dL (0.0-1.0); WBC,Urine 71 /hpf (0-5)
[2024-11-05 11:05] LABS: Culture Indicated,Urine Yes
[2024-11-05 12:08] LABS: Albumin, Serum 4.5 gm/dL (3.4-4.8); Anion Gap 10 (7-16); BUN/Creatinine Ratio 7 Ratio (12-20); Blood Urea Nitrogen 7 mg/dL (9-23); Calcium 10.1 mg/dL (8.3-10.6); Calcium (Corrected) 10.1 mg/dL (8.5-10.1); Carbon Dioxide 26.8 mMol/L (20.0-31.0); Chloride 94 mMol/L (98-107); Creatinine (Component) 1.0 mg/dL (0.6-1.3); Glucose 70 mg/dL (74-106); Osmolality,Calculated 258 (275-295); Phosphorous 3.6 mg/dL (2.4-5.1); Potassium 4.7 mMol/L (3.4-5.1); Sodium 131 mMol/L (136-145); eGFR 57 See Note
[2024-11-05 12:18] LABS: Uric Acid 3.8 mg/dL (3.1-7.8)
== END | disposition home or self-care (01) ==
PROVIDERS: PCP Internal Medicine; Referring Provider Internal Medicine Nephrology; Visit Provider Internal Medicine Nephrology
DX: N18.30 Chronic kidney disease, stage 3 unspecified (principal); N20.0 Calculus of kidney
CPT/HCPCS: 36415; 80069; 81001; 84550; 85025; 87086